=== PATIENT | female | born 1985 | race Caucasian/White ===

== ENCOUNTER 2023-09-25 15:52 | Outpatient (OUT) | payer BC, SELFPAY ==
--- NOTE | 2023-09-25 | US_ITS ---
The [address] [address] Patient Name: NANY SEWELL MRN: [id number] date: 1985 Sex: F Assigned Patient Location: US Current Patient Location: Accession/Order Number: [id number] Exam Date: 09/25/2023 16:04 Report Date: 09/26/2023 07:27 At the request of: LARISSA VIGIL Procedure: US pelvis w/ transvaginal EXAMINATION: US pelvis w/ transvaginal HISTORY: abnormal uterine bleeding COMPARISON: No relevant comparison available. FINDINGS: The uterus is normal in size, contour and myometrial echotexture measuring 8.7 x 3.6 x 4.7 cm. No focal myometrial mass. Area of anechoic echogenicity in the cervix likely representing a nabothian cyst The endometrium measures 4 mm, thin The right ovary is normal measuring 2.3 x 1.1 x 1.7 cm. Normal color and Doppler flow. The left ovary is normal measuring 2.6 x 1.6 x 2.5 cm. Normal color and Doppler flow No free fluid US/US pelvis w/ transvaginal IMPRESSION: Thin endometrium, otherwise normal exam Electronically authenticated by: DORA CAMARGO Date: 09/26/2023 07:27
== END 2023-09-25 15:53 | disposition home or self-care (01) ==
LOC: US 15:55
PROVIDERS: Family Provider Family Medicine; Visit Provider Obstetrics & Gynecology
DX: N93.9 Abnormal uterine and vaginal bleeding, unspecified (principal)
CPT/HCPCS: 76830; 76856

== ENCOUNTER 2023-10-16 15:33 | Outpatient (OUT) | payer BC, SELFPAY ==
--- OUTSIDE RECORDS SUMMARY | 2023-10-16 15:43 | XMS_ITS | CCD ---
Author Organization [facility] Care Team Providers Care Call Center Manager Name Role Phone Ramonita Green MD Primary Care Provider [phone] ABBY MINER Referring Unavailab le GREEN, RAMONITA Primary Care Unavailable ABBY MINER Referring Unavailab le RAMONITA GREEN Primary Care ABBY Lyon Referring Unavailab le NORMA, RAMONITA Primary Care Unavailable ABBY MINER Referring Unavailab sendy GREEN, RAMONITA Primary Care Unavailable Ramonita Green Primary Care Physician Ramonita Green MD Primary Care Provider RAMONITA GREEN Attending Unavailable LARISSA SALGADO Attending ABBY Lyon Attending Stephanie Medications Current Medications Medication Drug Class(es) Dates Sig (Normalized) Sig (Original) Aurovela 24 Fe oral tablet (1 source) Start: 01-16-2021 take 1 tablet by mouth once daily Aurovela 24 Fe oral tablet tab(s), Oral, Daily, Refill(s) 0 Start Date: 01/16/21 Status: Ordered ibuprofen 200 mg oral tablet (2 sources) Nonsteroidal Anti-inflammatory Drug Start: 09-28-2005 ibuprofen 200 MG tablet Ventolin HFA 90 mcg/inh Aerosol (1 source) Start: 01-16-2021 take 2 puff(s) by inhalation every six hours for wheezing Ventolin HFA 90 mcg/inh Aerosol 2 puff(s), Inhalation, q6hr for wheezing, 18 gram, Refill(s) 0, [id number], 172, cm, 01/16/21 9:36:00 EDT, Height/Length Dosing, 114.1, kg, 01/16/21 9:36:00 EDT, Weight Dosing Start Date: 01/16/21 Status: Ordered Problems Active Problems Problem Classification Problem Date Documented Da te Episodic/Chronic Acute and chronic tonsillitis (1 source) Chronic tonsillitis 10-03-2013 Chronic Biliary tract disease (1 source) Biliary calculus 05-29-2016 Episodic Other non-traumatic joint disorders (1 source) Shoulder pain; Translations: [Pain in right shoulder] Episodic Past or Other Problems Problem Classification Problem Date Documented Da te Episodic/Chronic Unclassified (1 source) Exposure to 2019 novel coronavirus; Translations: [Contact with and (suspected) exposure to COVID19] Results Test Name Value Interpretation Reference Range Facility Coding Summary.on 01-20-2022 Coding Summary. [id number] G h0bWw+PGhlYWQ+NZ2XRCX fZ65buAXdiO4JZ0sUGT2U UHPVSIFKFN1WHY6orYP9U KhxT8QdcjDg NdcsoVWiLS38SEt4ECN5v TupWVvmlC5pkNJvX6s0Ic PoIJ65rQ27TBkwDNYrQsG 3LjZpbjsgbWFy H7qsHnBnsNXgMnw+PHRhY mxlIHdpZHRoPScxMDAlJy LtsZunHE3kUg2bLWEbXCC vbGxhcHNlOiBj v8rxLEKuDAxyKH6biCrcO 3UthVM9MKBzj7a2Iq28bJ I+MFGdKRY7uJfkESfbj38 5RmFlo4alVNO6 oZLrMNcsJIW0J68ey2W6X FQbOYVyDJL3dDV0mZ6tvH jjctwrA8UpoMLfYuP3FQV 6oWScgK7jxKoq zlailY3tFnr+Q45OGZ5RT GRXQM5PMmt2W5UqVefudD I+DS27VGLzIO93nTWrcHE rp5fabGl8HfOz BAYoTYY1oYpbGDuqp8LyD NBbX79stJSks9T4NSBuxY wfwNHgYpToeAS4fR0zZTb pzmykv1bvibot Vrckq6ojop26uG94R91fA QjpLGKhTLJ3QZQnMXLdlR qjxk1pkM8iNw3+OSvxt9i ot9nogJa7TdBf HKKlnaUmwApuVHK8p2LsW e08R1ToiMsnf5UiFoa4em 85xCUyi0M7hDO3EClzXQB ceI2uKDebLyW9 TFDkFbHsqA13bVAgDCjjX j3svWqeeZjpLM7vFQAgtz hgOGWujE4mEVWvwHKilNc fGH0qACLxvsla g678ShPlKTR6ARGjdXPvE 9IwqV2kObSqFJBhFNDnU8 NrqREfAZhtL269KCpjGuR 8ZWThonZqC2Zs FJXexMkhLvW4s0E0Mz8Go 0ItlhbyAGQ0MMgeYUA5Wk DjAnAaVcE7O6NoPsn4XRM kaPugAD3rU8Yg LCVlwkemgtqaoLK7ARZpZ PUcuF28mSFmSWfpIm0ff7 P8p432EJOjPWYqoP20Fo9 udDogMTBwdCBU wN8oomavv3enlmboNtFiE NItUUf6WAe9ANLzkWikKl EyJAE8XwV5OVU6cJVamV6 nlFuvujhxxS7f Oyc+Y92xvC1lLRJ8FZN7p yjtAHAoynIvSW25EY30X3 RyPjwvdGFibGU+PGRpdiB viCjyQH7qJtEx u6tvz2GqLHxmC9XdCFOcT DrbLkf4QOYcSUB9kEX3bR 1tMEFgJJhgp4O3wXK6K6L lddBbeb8ax4tr LABzXHtmX61smIAlc2N2N UAtuHF9AQIipOipWkHknC 93Oyc+DPDbvEsfy8GiBtd yh7kow9orsSl4 NyYjQDLwhuWltLenMBU0r 1BsGi42F09aLMejVNQfFN SlVRMmFLRhiBwaus3nsE1 wIi8+PGNvbCB3 oMJ7sL0xBFXzNzS4XMtqY 346TxDmwWEjXilxx6lvu4 bccJu9AkNqDYPdewFkkTm wNNK1b3PmYx67 R34aUJdySIPaYNHySZNqM XTioMmmta9anX3vUj8+PC 9ng3yllt86oX78sGS+PHR gJCV5tVjpTEuo OGIboY8fAZvhVgB2EMQkC oNkrX17nZKkXWmaAy1xuN kkyAcpTF4yGSOngyytr70 1QfKbb1ezLJUn iSDyLItrJKZ9Y13mn4A0E PNqJRToFJP8hBO3qO0gnI lnbjogbGVmdDsgdmVydGl pIXtpVFlnR961 IHRvcDsnPlBhdGllbnQgT gWvVGa7Y8JtRwl2MQCluQ xvHW7mzHNwMTmlQv0lkIr yhIqfQZ3sKVYk zvhmw404XdUxl1irQALjn XGlTZxuXRS7U94cg4Q1OE HsLZPsPIQ8vMU2jY4nhTh nbjogbGVmdDsg rnUtiErfBRlfJRrdP174V HRvcDsnPkJpcnRoIERhdG E7TO92ZJ29wSFun6S3pCQ 8L7GhFHSgahle zfvbuSE7LKEhDDKojL35W c3xeBmoRv5iULDgISU8JT IboROkU7YhuR3eItVsFNM tCMGdF9UiyMLz GRhsG473UTorPnK9WCAxz cNiY4WwYEBjiGjgUhN5b1 N1Xv7UL8M5PD23YE13fVD tg3O0rSA7O5We ULTkopruzezitNY1TOIgU BIbnD01Hx5gcSfpDt9uBO SwWUB5WLLnpSUqY1PozV5 yOiAjMDAwMDAw Z0LigCYbDGyqG702UWdeZ xF5WREkakNpU8OnVEVjoL gfXvL3y6Y1Qt8UAGq2AM5 4PD79cKBwc3V7 tUO7X5LkRDMqznnyihesf HY6GDYqEIAskA70Na2eeP zoPn9cAPIxAIB4AOTycYF qS5SmzT1jGyXx DIMaGCEqH0XrkMWkZPseH 302KSeuPdH5NASiehWvB6 PpUKUzeXtkHtD9x5I2Bv7 LWFQcNT47NEM1 iKG3SC96YF18F2ZkUtquk GFibGU+PHRhYmxlIHdpZH RoPScxMDAlJyBzdHlsZT0 dFw4wZEQmDQQl wRbslPXtBxRos5jkHKYhR ZeaIJ6muGslK2HpjTV1SP Peb1z6Bq66Y74sC6VtgAV +KQGbnJH5lYR3 kE4sXaSeYhO9WTtlP903E nYakOVkHyril9pef2iwmL t4UxJ1MNHbyeFutDacEYJ 8e3RyCa24Q34u IHdpZHRoPSIxNSUiIHZhb Ckajy8lsN5xOk4+PGNvbC G4vYU3xC5yYhPeKnC2UHs zC628SpBdpZGk Ynnpo4bye7oryNa6LgDkD OLhtiPljIavZVP4n9FuJj 48M2WbiGqxx5TdLja6mw5 5lXUco3S3uOO0 O9KgTMIddidieJPfjQpyU T0rSKOppjurCORsrP9xOT BwE7m2YiYnRjT7LCcqM6U mdxJ6GOUurABz VJziJHS1O99wa8I0XXSfM IPqLZS4aKP5vH9mbNuuak ogbGVmdDsgdmVydGljYWw tKFnvT690JLTv hPpjMNLoaP7mYZUljDTsl QopCA1gFROtdpogGggIDn QsIEFMRUEgTjwvdGQ+PHR nLMX7pOceDLec JXIteM5aFHIkO8m1JoSpN eG1BEubI5KiNDYzrxibIz 33qI8eNmWqGfC1UJbsE1X oidN2TWZgvVEz XLtmQOK6X00lc8R2FOXtB ACaRSX6yAV6jQ6cjAayzu ogbGVmdDsgdmVydGljYWw nSVthR037ARHh qJhiGtB6JkEqKuS2ISn7T 6WsQhv1BTPkfLruPB5joF IzAFspVa3sbPpkdLlwSS7 wNTBpbjtwYWRk xM5iEQFaeTBqaZnkSM7zO CTdmbows190EyMdPAB1IL VfdHPhB2CxuY5gIzYlFKE kUBXsV1LeaTIp AYynL307USapMmJ3MWMuh tZxS6FaCZEnyBvrRxO9w1 U7Cd1iOCWNFSSaabplyDZ +XWHaXGO7pYrl VStsBXDijX7zGKIjK7a2R jUrEcY1FPbqR2CqVHBxbb teXn08rQ6dRzOgJxL1LMr aT9LpxqU2NLGh xEJbCFiwDHY8N21zn8O5V ENrEGBkLAN1eVS2vZ8byZ lnbjogbGVmdDsgdmVydGl hRHhsLRzbK288 IHRvcDsnPkZlbWFsZTwvd GQ+DZCnZGT7bTxoSPsbBJ PujU8dTRXwG3c3NeEvIoB 2YYrlA2IcLMDm zbxsQz96wB4gJsPyZhQ8B DliQ8QoctR0NMMzpVApNL faURB6W39zd2R2WNKrZSC qZZL7cFL6vH6l bGlnbjogbGVmdDsgdmVyd AtjFIuyHVzkG649JSUraT ehBdscKaUDzc8rNA8cVog vdGQ+TY05pr38 S6SsGzmjIft0LZIvEQO8t AW5oL4oMZBtZDqub0C3fR T1N4YzwzHbil0eb9aoSFU jSLupH76qlQOi w3I8RFBfoWL9BDFobJyiS mXjsW29Uel+PGNvbGdyb3 TaPtvia6lgt4bbfMj0PsL wJSIgdmFsaWdu MSF5h6WiPp33K53aVSbyQ HRoPSIzMCUiIHZhbGlnbj 9cpA9vIn9+FGVzrRF9lWD 4aY3wOiCmSaE7 DUmeX604WsHyvYIlFlalu 4ckl3nzqWw2GdPbKXXxja BorXjiCOS3h7UtQs92L3C jvLurg9VzEoe3 pi61qUJga4W4aNP4S0ElR MMgtkvzbMNajMyoVP5zQY LrcaarZERcnC3mKXSzO7y 3CgZoOwK8SGnr P8MfbtU9HJMlwFLkTCNyk HJInY5iviada9hbxzbbFl FoQYSsAAa4SUn3UIAguLa aIgYtITF8MrW7 CUG2dCJpwK8peWfdepdmz G9wOyc+EUz0c7jclJHeLM 0giWI1GA57GT07mSCwj4D 3jTH2G1VxIUQv ikzwdumesDD7UIKdVHCqt V39Jb0gsUhyOv5kNYCmFK T8MJFawEDgS6VoqF5dNcV jDHLlMZCwB2Zh iCPgKRqpL085JWlnNeS5C UCoerOgM8DuZQKbkFnbZc U7k0T8Xp4HWM26XP84WK9 0gWAec4S7aBA1 Z8HrZWKxolywglftbGU1F INeXHHraK81Ad2cqFppVv 8oWCGeCPX1SYHivVYrK2K rnC9nJlBcBUXa SNVfH9FomZZtHEthW709N GqsLgO0UYTitiLnH5GzZR ZydGltViS1l2G9Ub3AZc3 2MJ70GR93bEWh j7T3jMZ3M4OyYOJftdrix lunuMG6JYMtVPOyiT27Ay 0fnDszWi3fNAJfUIT8UGF niIUzI4TiaM8c JqXaQWUbCEJcR4NanBUqK PymN946PXhgNjW6DSPnsg XxQ0IwKEYqxNyoQgD5g7C 4Ho0VAProcaj3 H7LrFjiziPY+DA45LOWkV H44fKNmmKLyp3xlsVz1Qh DtGMPeXNS1sIwdJMpxv8P fPAKxB26toNDx c2U6 (more content not included)... Normal [facility] Lab Miscellaneous-LCon 11-04 Lab Miscellaneous COMMENT Invalid Interpretation Code [facility] Comment on above: Result Comment: Test Ordered: [id number] IGP, Apt HPV,rfx 16/18,45 IGP, Apt HPV,rfx 16/18,45 Note WB TESTS RESULT FLAG UNITS REF RANGE LAB Clinician Provided Cytology Information No. of containers..01 ThinPrep Vial DIAGNOSIS: 01 NEGATIVE FOR INTRAEPITHELIAL LESION OR MALIGNANCY. FUNGAL ORGANISMS MORPHOLOGICALLY CONSISTENT WITH SALIMA SPECIES ARE PRESENT. Specimen adequacy: 01 Satisfactory for evaluation. Endocervical and/or squamous metaplastic cells (endocervical component) are present. Performed by: Zelda [facility] (AS[facility]) . 01 Note: Note 01 The Pap smear is a screening test designed to aid in the detection of premalignant and malignant conditions of the uterine cervix. It is not a diagnostic procedure and should not be used as the sole means of detecting cervical cancer. Both false-positive and false-negative reports do occur. Test Methodology: Note 01 This liquid based ThinPrep(R) pap test was screened with the use of an image guided system. FLAG LEGEND: L-Low Normal,H-High Normal,LL-Alert Low,HH-Alert High <-Panic Low,>-Panic High,A-Abnormal,AA-Critical Abnormal Performed at: [address] [facility] [id number] Viky Gregg MD, HPV Aptima Negative =G Reference Range: Negative This nucleic acid amplification test detects fourteen high-risk HPV types (16,18,31,33,35,39,45,51,52,56,58,59,66,68) without differentiation. Performed at: [facility] [address] [id number] MD Cristino Salmon Performed By: #### 1 [id number] #### [facility] [address] [place] [address] Lab Miscellaneous-LCon 10-28 Test Code [id number] Invalid Interpretation Code [facility] Comment on above: Performed By: #### 1 [id number] #### [facility] [address] [place] [address] Test Name pap [id number] Invalid Interpretation Code [facility] Comment on above: Performed By: #### 1 [id number] #### [facility] [address] [place] [address] Physician Orderon 10-28-2021 Physician Order [id number]:[address] [facility] Coding Summary.on 08-04-2021 Coding Summary. [id number] G h0bWw+PGhlYWQ+MA0PDSX zB22cxJUhxR2AT5nWGM0A SZVJVBDCJB2JUE8bqCZ3B JgnZ9ReilLc EdgnjSTjGQ20DXs6CPL0s XewHRzsmT7iaGLcB8n6Qw RrMV63oY44RMmsIZXkFqN 3LjZpbjsgbWFy K6nyAqDmeKKhFvn+PHRhY mxlIHdpZHRoPScxMDAlJy OtvZplLE1cWa7fNURnAOR vbGxhcHNlOiBj t8ipGSImGSjiFT5ymRghF 6SqhFE6XRHnr3f5Wp97yC I+NYHcSHH7pBfjZFpng87 1IhPcb6raIXB3 bKWeIGntUML8M47uj2J8H FUyNNJxKCR2sIG0mJ1qcJ ydfkwmK1DewLAfWqO6TFP 5kTMptD4mtIgz yruffK0aLjm+I78VIU0JV VCJMG6BDxp9Q9SsDrwrvF I+XR41YQAoSO27aLRuvQK yv6yllCc6KgPu HXEnJSA4eYrpEWftx9LnW ABzC46ojMZyd0A2IBOwuE lamOIbCfGviDU3nG9jCJp gckxve8dahsbg Rwjfu2qtzv57vH63R27uL VrwGHUuKZT5QQOqNLUfpA exjx1wjQ4lCa2+FQegb3i df0vqhBv2SbJt XJYcadSzrGhgNYW2t2UnC c87A5FhrCfmp9HwBma3la 95gGRmg9X1cAW4DSvnMDN heI7qFPjeXkC3 IGZlWmNobO06pPAtKNueB m0vdWmllDogRM5lJWCzcf jiHPKsrL6bWGXwqAAarJx xIU3wTLSslcxu e350VkCyAYK7XWQwvJVcA 4NobY0iErVxEGQmFZAfF6 SidQYaOFesD757NLojXyR 2ATLrzmUfL8Hd YTFxsZthSzQ0a1V8Am2Zi 0GkdhxqLML6KTeqVNKcDo VoIlNiPlU2R7IzHfq9OLX baNbtNJ0zZ2Zt PWQpxnlznslftVS5BDArS NNdzR18rYNxXRwlPk9zu4 B6y878BZOsHRWxwZ29Fx2 udDogMTBwdCBU mX6acxhgu2jpboqrLlOaL MSaFHt0SUi5OQTbcWeoPc JvZNC8RnP4IWO8nSXlgI3 aiBtisuvemS7m Oyc+W84vkD5iGWJ6WHS7h jcaVQAerfTeHO28AQ70K8 RyPjwvdGFibGU+PGRpdiB btXstCP2aCaZf x2ghf4GlMUncP4YmKUWxL BglMze2IUEeHBA8bFZ0fS 4nSREnMApns0A3vCX5X1D ndiBngo5wy0bl FKVlNBuzQ10twNBfw6A5R CTflHW1IZFipCkqZyTmoE 93Oyc+CTFabXcwz8NjOuf tf1rcw5uxxAj1 VdAxKALrdeYnmHslVSE5f 7YuLz77K13hEFkzXCBwGE QtTQUpAGFfaFngxh5guN0 wIi8+PGNvbCB3 eCP7vV9yRUBsYpG6OCcmZ 369LrPlbZWwXaaaa2pjw6 kkdFj6TaEeSSKivrRlyDn bSTV3h7SoDr73 X14nOLceRCEbLETuPOTyZ GYgyTabtx6ttF0nPv8+PC 8dy4hnwd76dH53bDD+PHR fOSB2rYrzHDjo TTDpzH9qIIpmUsS2EYDtF uFsxZ46uLOaYBhkZj0cdS xgpBfcSI2yIATdxmdua24 4QwJme6epLTYf oLXnEJpbYPX6L68xo4B2M DRpSZXvLUJ5yBG0dH5mnM lnbjogbGVmdDsgdmVydGl vRQvkLFnqH288 IHRvcDsnPlBhdGllbnQgT mTvUPn6K7PoUgy6TEXwrF fwXL2ubRLlFCicKf0pyOl tkHecAO4qLEZy hluek174FgJye0pgWOOds NUvMWuqBBC9M44bh1T6TD LgGSEnWKM9jDG7gQ1clZd nbjogbGVmdDsg hdAnqMktANnzLGazM937N HRvcDsnPkJpcnRoIERhdG O4MW94BN74aBRlt7D6eLA 8U5SpQIVzcfxk xxhhhUJ4JCDkYXNytX29Z g4dnPjfJo9aTNRiHIX9FZ OjhHQdE0MqcL9nFxLwKMK yGWMxX4JqpSUp EWrmW215AHguHiJ9VFQkm hPxE6CvSAPpaWwaKpA8k4 T5Mo3TL0Z9SI65LZ62uIC wf3S6tSZ7H3Di SXJgxjgurjpacKE2HSTuB AUsxA08Wx8qrCioOf8oUM LtUWS8HRSjeDEkX3PdxP7 yOiAjMDAwMDAw J9EhsYPjIPhaM322FCcvU zF2BSFlntXiU5DeVALxwD yhDsR2u2W6Qw9FZUm3JP7 4CS53sONio0A7 tKF6K2AlQMZvjrgmoymfl HU7LILkQZBryB38Bi9axA rpDe3jPYLqWZS4TBSsnBG rD1UtjO1fFxHd PUUpUFRxG4NutRVtGJruG 938VRdiMcH9DXPkwwXaF5 QnHENmdLabIuN2c0O8Bo9 XPBKmNJ02VQL5 dRE1XL01HN16H7XcTdarv GFibGU+PHRhYmxlIHdpZH RoPScxMDAlJyBzdHlsZT0 fXw5cBGOlRJVv cLatmLRlPkTkr4ubCRVdC DxpJO7csChgD0WqyIB9XL Nho3p2Ma32E85gL3XshXK +ZTEomTS5jFC7 uK8rFtFvUlJ2SRhtY323M tRkhZKqElayz6cud5sosB d1MaA2YNXfefUpoYigPTC 3y2LtNn74U57s IHdpZHRoPSIxNSUiIHZhb Mfzrs7ciI4pFq3+PGNvbC Y4eGI2rT9rEcInCbR1IAi dG152RnFazQOi Jydkv8rkl7sutDd1UlZmX YJnkaIoxFkqEKS6q7HmVn 65I7DlfNwln9FnAti2fj3 3cNZsc9R3gSA2 A6WhPLKvuaecqOSpvIqrN D8yPHYlpnkzSVGagB3fGK AsJ3s5SyQdHbE9ZUehW1R bxvH7EZEnsBOt ZWpwEQD1N97zg1V5RQBeJ BHkRFX0jHT2wU3voIhxwf ogbGVmdDsgdmVydGljYWw rLRzrI469DTUo eDjmDDDmzP6pLWOyzQSxj YzxOK3aKGCpqmimMkwEBq QsIEFMRUEgTjwvdGQ+PHR gQEA4bCaeMYxi EYVyeQ7aHCLkK0m8FoPfD jL9KVlxI6NcLHYmvxivKa 64bW1rIdIxHbT8ZDtxR3R qhaF0NLJjdTMc HXijSHK1W48st0H1NBPwG SRaFMK2dDW1vM6tiUubfd ogbGVmdDsgdmVydGljYWw pMVibA348CIOn mVwqAgK0XaPeBuY8VDa5T 9ViIar1HZXspNrjSZ8lyX LgIJqnBu1tdFosmBeaOS3 wNTBpbjtwYWRk vY4kOFVxzLMxlEznYQ7kG DRmweeww395YjYqPTK0HD TpqYVaR2FukP2zWbUhXZT lMDNiD7BlyJVx GAimU298MBddSwD4LLFef pIrD5OaNSWlgXpyHaV1d8 K5Ph1iPbMPUFDvbeywiEU +HPCkNXV7fFli ROfpKOQygQ1yCZCpX1v5R tVaMdQ9OXkxS8HnVJBvop cdWp14mJ9yXeRxMtX5ZSl hK1HnwvS4REXh wINwDPoxYOL8Y54ge3L5L KGcIUHuPJS1iTL6qC2bfU lnbjogbGVmdDsgdmVydGl gBCcwTYexU284 IHRvcDsnPkZlbWFsZTwvd GQ+TYNlHLM2vOjmJVxaFR EyoK2kSMEwH0t9ErTlFbR 5FOhvE3ViEFOq umivTz49zJ6cNbGcLgL7V QdzA1UbjxQ6QZAuyPEqRK ayCUA7B53hm2L8EDVbPIB vSDN9fNI3gU2f bGlnbjogbGVmdDsgdmVyd OhsJHhvBIdvA582BFDrbT bePnUuT9NfgjavUofpiOP +GT67qh08F1Ec ThsoPih0QHAoERZ6oLW9l B7mQOStUXzqs2E3wYL0B5 KwjzTdvf9ff2swTGSrUEe nX89nxOLeq3M1 QOMfvWT3BSLbaCpeJgVey G93Oyc+TVFluLgvp2AvMm dbw9xxd9bswZs6CcYySTJ gdmFsaWduPSJ0 y1EoCk35J82zLRqlHVUsM SFsLWZyOAJruXkstc0lhS 9wIi8+NRIecDV9mTY0iV0 fRaXlFgQ5UNfl A562DiZyuRPrWyuaj8cto 4ffcLl1DlDlHWHcsgKkgF iiRCX1i7PeIn84R3DpwRy of9NaFxu9mb12 bJQgk8M5vJO1F1KjJSGig gxafOQcaZxeXM7gQIJlom esVBXtyR2bSSXwD9x5OuO sJdI2PQpdE6Jk rlH4JTJxuMUvTEKtvPHZg S3rwbcrq8iurzryRlSdST CtXXi2WRw0BXOlqJnhRhJ jDPS0ZnE8IHJ7 dPOsvB8utThpmvjdsV1oI yc+DFy4l7luiLBuVI5fdK G7SO91XI42rVLey1B4xZM 9H8DjKMCxqsyc bhjtrAT2RPGvRYOihI30E k8vuMjaUw7uBQIfGAE9XL XcfSSfF4FhtC1nSuYaNDE qSTUuN5BgwYWy HRtoI209CEwlVvO1FTGgw tJsM5NdKYHjyQdkDyF9n5 G5Am4CST52JS10CA87gVR hw6B4sDS7O8Rr XQJnkgiubewegRY3JRIyO WWieR49Es6cqOfvYg1mCP ZeGCN6JTTccJYoG6RgjZ0 yOiAjMDAwMDAw P0PxwAEcUToqS715ACddD gR9WNBavoOqH1VqKJTqvH hrHbT6y3R4Fe7EDq64XT7 3RO70yQFnq0A0 hPM0H3EdYSCvcipgefnqm RL2ZZLrERHkgO65Lt3ruS ajJz9eJRJtODW2OAQrkIA bE4DebI2aZlUi BNIkHQGxG4SvrEBeTWpuK 044MYsrXiW4JQIhuaZaR5 QxPUEtoCqaRxO1e3X8Sz3 WUMsjewn6W4Ba PjwvdHI+YQ47LCJgYJ12l WEijIJuo7yjwZi8EfHuEL JoWPB6lGijHXhys5RuDEE wX08yvLRbn6I4 IGNv (more content not included)... Normal [facility] Priority Order-Sony 2021 Priority Order-STAT Comment Invalid Interpretation Code [facility] Comment on above: Result Comment: Rece ived Performed at: [facility] [address] [place], [place] [id number] Formerly [facility] Tigre Bloom Performed By: #### 2 [id number], SARS-CoV-2, JESSE #### [facility] [address] [place] [address] SARS-CoV-2, NAAon 08-02-2021 SARS-CoV-2 (COVID-19) RNA JESSE+probe Ql (Resp) Not detected Invalid Interpretation Code Not Detected [facility] Comment on above: Result Comment: This nucleic acid amplification test was developed and its performance characteristics determined by [employer]. Nucleic acid amplification tests include RT-PCR and TMA. This test has not been FDA cleared or approved. This test has been authorized by FDA under an Emergency Use Authorization (EUA). This test is only authorized for the duration of time the declaration that circumstances exist justifying the authorization of the emergency use of in vitro diagnostic tests for detection of SARS-CoV-2 virus and/or diagnosis of COVID-19 infection under section 564(b)(1) of the Act, 21 U.S.C. 360bbb-3(b) (1), unless the authorization is terminated or revoked sooner. When diagnostic testing is negative, the possibility of a false negative result should be considered in the context of a patient's recent exposures and the presence of clinical signs and symptoms consistent with COVID-19. An individual without symptoms of COVID-19 and who is not shedding SARS-CoV-2 virus would expect to have a negative (not detected) result in this assay. Performed at: [facility] [address], [place] [id number] PhD Buck Roblero Performed By: #### 2 [id number], SARS-CoV-2, JESSE #### [facility] [address] [place] [address] Consent for Treatmenton 07-23 Consent for Treatment [id number] #1.00CD:[address] [facility] Reference Laboratory Testing Ordered By: [employer] on 08-01-2021 SARS-CoV-2 (COVID-19) RNA JESSE+probe Ql (Resp) Not detected Invalid Interpretation Code Not Detected [facility] [employer] Comment on above: Result Comment: This nucleic acid amplification test was developed and its performance characteristics determined by [employer]. Nucleic acid amplification tests include RT-PCR and TMA. This test has not been FDA cleared or approved. This test has been authorized by FDA under an Emergency Use Authorization (EUA). This test is only authorized for the duration of time the declaration that circumstances exist justifying the authorization of the emergency use of in vitro diagnostic tests for detection of SARS-CoV-2 virus and/or diagnosis of COVID-19 infection under section 564(b)(1) of the Act, 21 U.S.C. 360bbb-3(b) (1), unless the authorization is terminated or revoked sooner. When diagnostic testing is negative, the possibility of a false negative result should be considered in the context of a patient's recent exposures and the presence of clinical signs and symptoms consistent with COVID-19. An individual without symptoms of COVID-19 and who is not shedding SARS-CoV-2 virus would expect to have a negative (not detected) result in this assay. Performed at: [facility] [address], [place] [id number] PhD Buck Roblero XR KNEE LEFT (MIN 4 VIEWS)on 05-12-2021 XR KNEE LEFT (MIN 4 VIEWS) EXAM: XR KNEE LEFT (MIN 4 VIEWS) HISTORY: M25.562 COMPARISON: None. TECHNIQUE: 4 views of the left knee and 3 views of the right knee were obtained. FINDINGS: Left knee: There is mild, tricompartmental, marginal spurring along with spurring of the tibial spines. Right knee: Spurring of the tibial spines and mild marginal tibiofemoral compartment spurring. IMPRESSION: Mild tricompartmental osteoarthritis at the left knee. Mild osteoarthritis at the right knee. Interpreted by: Jodi Rhodes MD Signed by: Jodi Rhodes MD 05/12/21 Final result Normal [facility] COVID-19 ([facility])on 04-16-2021 SARS-CoV-2 (COVID-19) RNA JESSE+probe Ql (Unsp spec) Not detected Normal Not Detected [facility] Comment on above: Result Comment: This test result should be correlated with clinical presentations and medical history by a healthcare provider to determine its clinical significance. This assay was performed by a reverse transcriptase real-time polymerase chain reaction (rt PCR) method on the [employer] system. This test has been authorized only for the detection of nucleic acid from SARS-CoV-2, not for any other viruses or pathogens. This test has not been FDA cleared or approved. This test has been authorized by FDA under an Emergency Use Authorization (EUA). This test is only authorized for the duration of time the declaration on that circumstances exist justifying the authorization emergency use of in vitro diagnostic tests for detection and/or diagnosis of COVID-19 infection under section 564 (b) (1) of the Act, 21 U.S.C. 360 bbb-3 (b) (1), unless authorization is terminated or revoked sooner. Performed By: #### 2 [id number] #### [facility] [address] [place] [address] SARS-CoV-2 (COVID-19) RNA JESSE+probe Ql (Unsp spec) Pass Normal Pass [facility] Comment on above: Performed By: #### 2 [id number] #### [facility] [address] [place] [address] Specimen source Nom (Unsp spec) Nasal Normal [facility] Comment on above: Performed By: #### 2 [id number] #### [facility] [address] [place] [address] Family Medicine Phone Visit - Telehealthon 04-16-2021 Family Medicine Phone Visit - Telehealth Chief Complaint cc cough congestion HPI Staff Symptoms started-4 days Headache- no Body aches-no Earache- no Runny/stuffy nose- both Problem with Smell- no Problem with Taste-no Sore throat- yes Cough- cough Scratchy tickly throat- no Chest symptoms- yes hurts when coughs YEAGER- no but yes if moves around Orthopnea- no Lung Hx asthma, bronchitis, chest colds- bronchitis 3 months ago Fever/chills- no GI symptoms-no COVID exposure-no History of Present Illness I have reviewed and verified the staff HPI to be accurate for this encounter. Adding on--35-year-old female presents to convenient care via phone visit for sore throat and cough. Still able to eat and drink. Able to swallow though it hurts. No chest pain. Reports some chest tightness with coughing. Reports mild shortness of breath with exertion. No dyspnea at rest. Reports having bronchitis about 3 months ago and tells me she feels the same now as she did then. Requesting steroids and Bromfed. Denies red or white patches in the back of throat. Tonsils removed when 24 years old. Did have COVID test on for work and has not resulted yet. Denies Strep throat exposure. Review of Systems Cough: yes, productive SOB: yes, on exertion Wheezing: no Ear pain: no Ear drainage: no Loss of taste or smell: no Nausea: no Vomiting: no Diarrhea: no Current or former smoker: no Underlying health conditions: no Known Covid exposure: no Physical Exam Vitals & Measurements HT: 174 cm HT: 174.0 cm WT: 113 kg WT: 113.0 kg BMI: 37.32 General: In no acute distress during phone visit Lungs: No conversational dyspnea or audible wheezing noted Mental status: Grossly normal over phone Assessment/Plan 1. Acute URI (J06.9: Acute upper respiratory infection, unspecified) Discussed differential of common cold vs covid. We will treat with Bromfed and Medrol Dosepak. Continue to wait for Covid test results. Advised to self quarantine x 10 days after onset of symptoms OR until negative test AND until fever free x 24 hours without tylenol/ibuprofen with improving URI symptoms. Social distancing, good handwashing encouraged. May use OTC cold medications for symptomatic tx. ER if any severe worsening symptoms, shortness of breath. Patient verbalized understanding of tx plan. -- Limited car PE performed. In no acute distress. Mild left cervical adenopathy. No overt posterior pharyngeal erythema or exudate. Lungs clear. Heart rate regular. -- This visit was conducted via phone communications from my office due to the restrictions of the COVID-19 pandemic. No physical exam was conducted due to audio only communication with the patient located at [address] [place] [phone], with no one else. If it is determined that the patient should be evaluated in person, the patient will be directed to the appropriate clinic or venue. The patient or their guardian verbally consented to this visit. Phone time was 10 minutes discussing health issues with counseling and coordination of care. Ordered: brompheniramine/dextr omethorphan/PSE, 10 mL, Oral, QID for cough and congestion for 7 day(s), 120 mL, Refill(s) 0, [facility] #[id number], 174, cm, 04/16/21 10:01:00 EDT, Height/Length Dosing, 113, kg, 04/16/21 10:01:00 EDT, Weight Dosing methylPREDNISolone, = 1 packet(s), Oral, As Directed, as directed on package labeling, X 6 day(s), # 21 tab(s), Refills(s) 0, Pharmacy: [facility] #[id number], 174, cm, 04/16/21 10:01:00 EDT, Height/Length Dosing, 113, kg, 04/16/21 10:01:00 EDT, Weight Dosing 2. Laryngitis (J04.0: Acute laryngitis) See above treatment plan Ordered: brompheniramine/dextr omethorphan/PSE, 10 mL, Oral, QID for cough and congestion for 7 day(s), 120 mL, Refill(s) 0, [facility] #[id number], 174, cm, 04/16/21 10:01:00 EDT, Height/Length Dosing, 113, kg, 04/16/21 10:01:00 EDT, Weight Dosing methylPREDNISolone, = 1 packet(s), Oral, As Directed, as directed on package labeling, X 6 day(s), # 21 tab(s), Refills(s) 0, Pharmacy: [facility] #[id number], 174, cm, 04/16/21 10:01:00 EDT, Height/Length Dosing, 113, kg, 04/16/21 10:01:00 EDT, Weight Dosing 3. BMI 37.0-37.9, adult (Z68.37: Body mass index [BMI] 37.0-37.9, adult) The standard range for ages 18 and older is >=18.5 and < 25 kg/m2. Your BMI today was above this range, this falls in the overweight to obese category and there are medical benefits to weight loss. We can offer counselling, referral, and/or medical support in addressing this problem. Your BMI and weight management will be followed at subsequent visits. Ordered: brompheniramine/dextr omethorphan/PSE, 10 mL, Oral, QID for cough and congestion for 7 day(s), 120 mL, Refill(s) 0, [facility] #[id number], 174, cm, 04/16/21 10:01:00 EDT, Height/Length Dosing, 113, kg, 04/16/21 10:01:00 EDT, Weight Dosing methylPREDNISolone, = 1 packet(s), Oral, As Directed, as directed on package labeling, X 6 day(s), # 21 tab(s), Refills(s) 0, Pharmacy: (more content not included)... Normal [facility] Comment on above: Result Comment: Elec tronically Signed By: Beronica Rodriguez CNP\.jenaro\Date and Time Signed: 04/16/21 11:11 EDT Patient Educationon 04-16-20 Patient Education Gastroenterology Obesity, Adult Obesity is the condition of having too much total body fat. Being overweight or obese means that your weight is greater than what is considered healthy for your body size. Obesity is determined by a measurement called BMI. BMI is an estimate of body fat and is calculated from height and weight. For adults, a BMI of 30 or higher is considered obese. Obesity can lead to other health concerns and major illnesses, including: ? Stroke. ? Coronary artery disease (CAD). ? Type 2 diabetes. ? Some types of cancer, including cancers of the colon, breast, uterus, and gallbladder. ? Osteoarthritis. ? High blood pressure (hypertension). ? High cholesterol. ? Sleep apnea. ? Gallbladder stones. ? Infertility problems. What are the causes? Common causes of this condition include: ? Eating daily meals that are high in calories, sugar, and fat. ? Being born with genes that may make you more likely to become obese. ? Having a medical condition that causes obesity, including: ? Hypothyroidism. ? Polycystic ovarian syndrome (PCOS). ? Binge-eating disorder. ? Heriberto syndrome. ? Taking certain medicines, such as steroids, antidepressants, and seizure medicines. ? Not being physically active (sedentary lifestyle). ? Not getting enough sleep. ? Drinking high amounts of sugar-sweetened beverages, such as soft drinks. What increases the risk? The following factors may make you more likely to develop this condition: ? Having a family history of obesity. ? Being a woman of descent. ? Being a man of descent. ? Living in an area with limited access to: ? [place], recreation centers, or sidewalks. ? Healthy food choices, such as grocery stores and [employer]. What are the signs or symptoms? The main sign of this condition is having too much body fat. How is this diagnosed? This condition is diagnosed based on: ? Your BMI. If you are an adult with a BMI of 30 or higher, you are considered obese. ? Your waist circumference. This measures the distance around your waistline. ? Your skinfold thickness. Your health care provider may gently pinch a fold of your skin and measure it. You may have other tests to check for underlying conditions. How is this treated? Treatment for this condition often includes changing your lifestyle. Treatment may include some or all of the following: ? Dietary changes. This may include developing a healthy meal plan. ? Regular physical activity. This may include activity that causes your heart to beat faster (aerobic exercise) and strength training. Work with your health care provider to design an exercise program that works for you. ? Medicine to help you lose weight if you are unable to lose 1 pound a week after 6 weeks of healthy eating and more physical activity. ? Treating conditions that cause the obesity (underlying conditions). ? Surgery. Surgical options may include gastric banding and gastric bypass. Surgery may be done if: ? Other treatments have not helped to improve your condition. ? You have a BMI of 40 or higher. ? You have life-threatening health problems related to obesity. Follow these instructions at home: Eating and drinking ? Follow recommendations from your health care provider about what you eat and drink. Your health care provider may advise you to: ? Limit fast food, sweets, and processed snack foods. ? Choose low-fat options, such as low-fat milk instead of whole milk. ? Eat 5 or more servings of fruits or vegetables every day. ? Eat at home more often. This gives you more control over what you eat. ? Choose healthy foods when you eat out. ? Learn to read food labels. This will help you understand how much food is considered 1 serving. ? Learn what a healthy serving size is. ? Keep low-fat snacks available. ? Limit sugary drinks, such as soda, fruit juice, sweetened iced tea, and flavored milk. ? Drink enough water to keep your urine pale yellow. ? Do not follow a fad diet. Fad diets can be unhealthy and even dangerous. Physical activity ? Exercise regularly, as told by your health care provider. ? Most adults should get up to 150 minutes of moderate-intensity exercise every week. ? Ask your health care provider what types of exercise are safe for you and how often you should exercise. ? Warm up and stretch before being active. ? Cool down and stretch after being active. ? Rest between periods of activity. Lifestyle ? Work with your health care provider and a dietitian to set a weight-loss goal that is healthy and reasonable for you. ? Limit your screen time. ? Find ways to reward yourself that do not involve food. ? Do not drink alcohol if: ? Your health care provider tells you not to drink. ? You are , may be , or are planning to become . ? If you drink alcohol: ? Limit how much you use to: ? 0?1 drink (more content not included)... 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 [address] [place] [address] First Test Unknown Normal [facility] Comment on above: Performed By: #### 2 [id number] #### [facility] [address] [place] [address] Hospitalized? NO Normal [facility] Comment on above: Performed By: #### 2 [id number] #### [facility] [address] [place] [address] ICU NO Normal [facility] Comment on above: Performed By: #### 2 [id number] #### [facility] [address] [place] [address] ? Unknown Normal [facility] Comment on above: Performed By: #### 2 [id number] #### [facility] [address] [place] [address] Resides in a Congregate Care Setting NO Normal [facility] Comment on above: Performed By: #### 2 [id number] #### [facility] [address] [place] [address] Symptomatic as defined by CDC Unknown Normal [facility] Comment on above: Performed By: #### 2 [id number] #### [facility] [address] [place] [address] XR SHOULDER RIGHT (MIN 2 VIE WS)on 12-29-2020 XR SHOULDER RIGHT (MIN 2 VIEWS) EXAM: XR SHOULDER RIGHT (MIN 2 VIEWS) HISTORY: M25.511 Right shoulder pain. COMPARISON: None. TECHNIQUE: AP, external rotation, and scapular Y views of the right shoulder FINDINGS: No fracture, dislocation, or advanced degenerative changes seen. No bursal or soft tissue calcifications are apparent. Two punctate densities overlying the soft tissues appear to be artifactual. Right sided ribs included appear satisfactory. IMPRESSION: No acute right shoulder abnormality or significant degenerative change. Interpreted by: Benitez Grayson DO Signed by: Benitez Grayson DO 12/29/20 Final result Normal [facility] XR SHOULDER RIGHT (MIN 2 VIE WS)Ordered By: Abby Miner on 12-29-2020 No acute right shoulder abnormality or significant degenerative change. [employer] Phone: EXAM: XR SHOULDER RIGHT (MIN 2 VIEWS) HISTORY: M25.511 Right shoulder pain. COMPARISON: None. TECHNIQUE: AP, external rotation, and scapular Y views of the right shoulder FINDINGS: No fracture, dislocation, or advanced degenerative changes seen. No bursal or soft tissue calcifications are apparent. Two punctate densities overlying the soft tissues appear to be artifactual. Right sided ribs included appear satisfactory. [employer] Phone: [place], [facility] Incoming Radiant Results From [employer] - 12/29/2020 11:47 AM EDT EXAM: XR SHOULDER RIGHT (MIN 2 VIEWS) HISTORY: M25.511 Right shoulder pain. COMPARISON: None. TECHNIQUE: AP, external rotation, and scapular Y views of the right shoulder FINDINGS: No fracture, dislocation, or advanced degenerative changes seen. No bursal or soft tissue calcifications are apparent. Two punctate densities overlying the soft tissues appear to be artifactual. Right sided ribs included appear satisfactory. IMPRESSION: No acute right shoulder abnormality or significant degenerative change. [employer] Phone: [employer] Phone: Encounters Encounter Date Encounter Type Care Provider Facility Start: 10-02-2023 End: 10-02-2023 ambulatory ABBY MINER Not Available Start: 09-19-2023 End: 09-19-2023 ambulatory LARISSA SALGADO Not Available Start: 09-04-2023 End: 09-04-2023 ambulatory RAMONITA GREEN Not Available Start: 09-04-2023 Bamboo flowsheet Ramonita green MD Work Phone: [facility] Start: 09-04-2023 Bamboo flowsheet Ramonita green MD Work Phone: [facility] Start: 08-28-2023 Chart abstracting Ramonita jin MD Work Phone: [facility] Start: 08-01-2021 End: 10-30-2021 Patient encounter procedure Ramonita Green [facility] Start: 05-11-2021 End: 05-14-2021 ambulatory ABBY EMMANUEL MINER [facility] Start: 05-11-2021 End: 05-14-2021 ambulatory ABBY MINER [facility] Start: 05-11-2021 End: 05-13-2021 Subsequent hospital visit by physician Ramonita Green MD Work Phone: [facility] Start: 12-29-2020 End: 01-01-2021 ambulatory ABBY MINER [facility] Start: 12-29-2020 End: 01-01-2021 ambulatory ABBY MINER [facility] Start: 12-29-2020 End: 12-31-2020 Subsequent hospital visit by physician Gorge Whitfield [facility] 1 [facility] Comment on above: Right shoulder pain, unspecified chronicity Start: 12-29-2020 End: 12-31-2020 Subsequent hospital visit by physician Ramonita Green MD Work Phone: [facility] Procedures Date Procedure Procedure Detail Performing Clinician Start: 12-29-2020 Radex shoulder compl ete minimum 2 views Abby Miner DO Work Phone: Start: 03-08-2018 Excision of mass of neck Ramonita Green Comment on above: right side of neck Start: 06-05-2016 Laparoscopic cholecystectomy Ramonita Green Start: 03-23-2016 PRK laser eye surgery Naomi Green Start: 07-23-2009 Tonsillectomy Ramonita wright Start: 07-23-2006 Cervical lymph node structure (body structure) Ramonita Green Plan of Treatment Date Care Activity Detail Author Start: 01-25-2027 DTaP/Tdap/Td vaccine (2 - Td or Tdap) DTaP/Tdap/Td vaccine (2 - Td or Tdap) [employer] Phone: Start: 01-25-2027 DTaP/Tdap/Td vaccine (8 - Td or Tdap) DTaP/Tdap/Td vaccine (8 - Td or Tdap) [employer] Phone: Start: 09-19-2023 End: 09-19-2023 Patient encounter procedure 09/19/2023 1:10 PM EST Office Visit [facility] [address] [place] [id number] Larissa Salgado, DO [address] [place] [address] [facility] Start: 09-04-2023 End: 09-04-2023 Patient encounter procedure [facility] Comment on above: Arrived Start: 03-23-2023 Influenza vaccination Influenz a Vaccine (#1) [facility] Start: 03-23-2021 Influenza vaccination [facility] vacc ine ([facility]ed[facility] Start: 11-12-2017 Screening for malign ant neoplasm of cervix [facility] Start: 11-12-2008 Screening for malign ant neoplasm of cervix [facility] Start: 03-26-2006 Hepatitis B vaccine (3 of 3 - 3-dose primary series) Hepatitis B vaccine (3 of 3 - 3-dose primary series) [facility] Phone: Start: 11-12-2002 HIV screening HIV screen [facility] Work Phone: Start: 1999 COVID-19 Vaccine (1) COVID-19 Vaccin e (1) [facility] Phone: Start: 11-12-1988 Varicella vaccine (1 of 2 - 2-dose childhood series) Varicella vaccine (1 of 2 - 2-dose childhood series) [employer] Phone: Start: 1987 Hepatitis C screening Hepatitis C sc reen [facility] Phone: Immunizations Immunization Date Immunization Notes Care Provider Fa cilisadaf 05-09-2021 influenza virus vaccine, unspecified formulation; Translations: [Fluzone PF Quadrivalent ] Ramonita Green [facility] Comment on above: Reason for Medicatio n: Prophylaxis 08-26-2020 SARS-CoV-2 (COVID-19 ) mRNA-1273 vaccine Ramonita Green [facility] 07-29-2020 SARS-CoV-2 (COVID-19 ) mRNA-1273 vaccine Ramonita Green [facility] 01-25-2017 tetanus toxoid, redu oswaldo diphtheria toxoid, and acellular pertussis vaccine, adsorbed; Translations: [Adacel (Tdap)] Ramonita Green [facility] Payers Date Payer Category Payer Unknown BCBS BCBS [id number] 2021-Present [phone] [address] [place] [address] [id number] 2021 Unknown [id number] 2020 Unknown [id number] 1987 Unknown [id number] 1987 Unknown [id number] 1987 Unknown [id number] 1987 Unknown [id number] 1987 Unknown [id number] 1987 Unknown [id number] 1987 Unknown [id number] Social History Date Type Detail Facility [facility] [employer] Phone: Start: 1985 Sex Assigned At Not on file [facility] Work Phone: Start: 01-16-2021 End: 05-31-2023 Tobacco smoking status Never smoked tobacco (finding) [facility] Tobacco smoking status Never [facility] Start: 05-31-2023 End: 08-28-2023 Sex Assigned At Female [facility] Start: 05-31-2023 Tobacco use and exposure Smokeless tobacco non-user [facility] Start: 08-28-2023 Alcohol intake Current drinker of alcohol (finding) [facility] Start: 05-31-2023 End: 08-28-2023 History of Social function [facility] Start: 08-28-2023 Alcohol Comment Caffeine intake: 1-2 cups per day soda/pop, chocolate, soda [facility] Start: 1985 Sex Assigned At Female [facility] Start: 05-24-2023 Gender identity Identifies as female gender (finding) [facility] Start: 05-24-2023 Sexual orientation Heterosexual (finding) [facility] Within the last year , have you been afraid of your partner or ex-partner? No [facility] Do you belong to any clubs or organizations such as sikhism groups, unions, fraternal or athletic groups, or school groups? Yes [facility] Are you now , , , , never or living with a partner? [facility] How often to you hav e a drink containing alcohol? 2-4 times a month [facility] How many standard dr inks containing alcohol do you have on a typical day? 1 or 2 [facility] How often do you hav e 6 or more drinks on 1 occasion? Never [facility] Do you feel stress - tense, restless, nervous, or anxious, or unable to sleep at night because your mind is troubled all the time - these days [OSQ] To some extent [facility] (I/We) worried wheth er (my/our) food would run out before (I/we) got money to buy more. Never true [facility] Evaluation + Plan note Note Date & Type Note Facility Evaluation + Plan note No data available for this section [facility] Evaluation note Note Date & Type Note Facility Evaluation note Diagnosis Right shoulder pain, unspecified chronicity documented in this encounter [facility] Work Phone: Hospital Discharge instructions Note Date & Type Note Facility Hospital Discharge instructions No data available for this section [facility] Summary Purpose Family History No Family History Records FoundNo Family History Records FoundNo Family History Records Found Advance Directives No Advanced Directives Records FoundNo Advanced Directives Records FoundNo Advanced Directives Records Found Additional Source Comments INFORMATION SOURCE (unrecogn ized section and content) DATE CREATED AUTHOR 05/15/2021 Odette Galvez lexii DATE CREATED AUTHOR AUTHOR'S ORGANIZ ATION 01/21/2022 [facility] DATE CREATED AUTHOR AUTHOR'S ORGANIZ ATION 10/04/2023 [facility] [employer] Care Teams (unrecognized sec tion and content) Call Center Manager Relationship Specialty Start Date End Date Ramonita Green MD [address] [place] [address] PCP - General Family Medicine 11/28/22 FOR RECORDS PERTAINING TO PATIENTS WHO ARE OR HAVE BEEN ENROLLED IN A CHEMICAL DEPENDENCY/SUBSTANCEABUSE PROGRAM, SOME INFORMATION MAY BE OMITTED. This clinical summary was aggregated from multiple sources. Caution should be exercised in using it in the provision of clinical care. This summary normalizes information from multiple sources, and as a consequence, information in this document may materially change the coding, format and clinical context of patient data. In addition, data may be omitted in some cases. CLINICAL DECISIONS SHOULD BE BASED ON THE PRIMARY CLINICAL RECORDS. [employer] [facility]. provides no warranty or guarantee of the accuracy or completeness of information in this document.
[2023-10-18 08:12] LABS: Progesterone 21.1 ng/mL (.)
== END 2023-10-16 15:34 | disposition home or self-care (01) ==
LOC: LAB 15:35
PROVIDERS: Family Provider Family Medicine; Visit Provider Obstetrics & Gynecology
DX: E34.9 Endocrine disorder, unspecified (principal)
CPT/HCPCS: 36415; 84144

== ENCOUNTER 2023-11-12 16:25 | Outpatient (OUT) | payer BC, SELFPAY ==
[2023-11-14 12:08] LABS: Progesterone 20.2 ng/mL (.)
== END 2023-11-12 16:26 | disposition home or self-care (01) ==
LOC: LAB 16:26
PROVIDERS: Family Provider Family Medicine; Visit Provider Obstetrics & Gynecology
DX: E34.9 Endocrine disorder, unspecified (principal)
CPT/HCPCS: 36415; 84144

== ENCOUNTER 2024-01-09 20:13 | Outpatient (REF) | payer BC, SELFPAY ==
[2024-01-14 09:08] LABS: Age Gdln ACOG Testing Note (.); HPV Aptima Negative (Negative); IGP, Aptima HPV, rfx 16/18,45 Note (.)
== END 2024-01-09 20:14 | disposition home or self-care (01) ==
LOC: LAB 20:13
PROVIDERS: Family Provider Family Medicine; Visit Provider Obstetrics & Gynecology
DX: Z01.419 Encounter for gynecological examination (general) (routine) without abnormal findings (principal)
CPT/HCPCS: 87624; 88175

== ENCOUNTER 2024-01-21 07:30 | Day surgery (SDC) | payer BC, SELFPAY ==
--- OUTSIDE RECORDS SUMMARY | 2024-01-21 07:35 | XMS_ITS ---
Patient Summarization (C-CDA 2.1 CCD) Created on: January 21, 2024 NANY SEWELL : 1985 Sex: Female Author Organization Sample organization Care Team Providers Care Carton Filler Name Role Phone Ramonita Green MD Primary Care Provider ABBY MINER Referring Unavailab le GREEN, RAMONITA Primary Care Unavailable ABBY MINER Referring Unavailab le GREEN, RAMONITA Primary Care Unavailable ABBY MINER Referring Unavailab le GREEN, RAMONITA Primary Care Unavailable ABBY MINER Referring Unavailab le GREEN, RAMONITA Primary Care Unavailable Ramonita Green Primary Care Physician Ramonita Green MD Primary Care Provider Larissa SALGADO R Attending Unavailable YARITZA, Larissa R Admitting Unavailable RAMONITA GREEN Attending Unavailable YARITZA, LARISSA Attending Unavailable ABBY MINER Attending Unavailable PETITTI, ZEYAD Gifford Attending Unavailable RAMONITA GREEN Referring Unavailable PETITTI, ZEYAD Gifford Attending Unavailable PETITTI, ZEYAD Gifford Attending Unavailable RAMONITA GREEN Attending Unavailable YARITZA, LARISSA Attending Unavailable YARITZA, Larissa R Attending Unavailable YARITZA, Larissa R Admitting Unavailable YARITZA, Larissa R Admitting Unavailable YARITZA, Larissa R Attending Unavailable Encounters Encounter Date Encounter Type Care Provider Facility Start: 01-09-2024 End: 01-09-2024 ambulatory LARISSA SALGADO Not Available Start: 01-08-2024 End: 01-08-2024 ambulatory RAMONITA GREEN Not Available Start: 12-11-2023 ambulatory Larissa R YARITZA Facility: [facility] Start: 12-11-2023 End: 12-11-2023 ambulatory Larissa R YARITZA Facility:[facility] Start: 12-11-2023 End: 12-11-2023 Patient encounter procedure Larissa SALGADO [facility] Start: 11-20-2023 End: 11-20-2023 ambulatory ZEYAD A PETITTI Not Available Start: 11-08-2023 End: 11-08-2023 ambulatory RAMONITA GREEN Not Available Start: 11-07-2023 End: 11-07-2023 ambulatory ZEYAD A PETITTI Not Available Start: 10-15-2023 End: 10-15-2023 ambulatory ZEYAD A PETITTI Not Available Start: 10-02-2023 End: 10-02-2023 ambulatory ABBY MINER Not Available Start: 09-19-2023 End: 09-19-2023 ambulatory LARISSA YARITZA Not Available Start: 09-04-2023 End: 09-04-2023 ambulatory RAMONITA GREEN Not Available Start: 09-04-2023 Bamboo flowsheet Ramonita green MD Work Phone: [facility] Start: 09-04-2023 Bamboo flowsheet Ramonita green MD Work Phone: [facility] Start: 08-28-2023 Chart abstracting Ramonita jin MD Work Phone: [facility] Start: 08-01-2021 End: 10-30-2021 Patient encounter procedure Ramonita Green [facility] Start: 05-11-2021 End: 05-14-2021 ambulatory ABBY MINER [facility] Start: 05-11-2021 End: 05-14-2021 ambulatory ABBY MINER [facility] Start: 05-11-2021 End: 05-13-2021 Subsequent hospital visit by physician Ramonita Green MD Work Phone: [facility] Start: 12-29-2020 End: 01-01-2021 ambulatory ABBY MINER [facility] Start: 12-29-2020 End: 01-01-2021 ambulatory ABBY MINER [facility] Start: 12-29-2020 End: 12-31-2020 Subsequent hospital visit by physician Gorge [facility] 1 [facility] Comment on above: Right shoulder pain, unspecified chronicity Start: 12-29-2020 End: 12-31-2020 Subsequent hospital visit by physician Ramonita Green MD Work Phone: [facility] Immunizations Immunization Date Immunization Notes Care Provider Fa qiana 05-09-2021 influenza virus vaccine, unspecified formulation; Translations: [Fluzone PF Quadrivalent ] Ramonita Green [facility] Comment on above: Reason for Medicatio n: Prophylaxis 08-26-2020 SARS-CoV-2 (COVID-19 ) mRNA-1273 vaccine Ramonita Green [facility] 07-29-2020 SARS-CoV-2 (COVID-19 ) mRNA-1273 vaccine Ramonita Green [facility] 01-25-2017 tetanus toxoid, redu oswaldo diphtheria toxoid, and acellular pertussis vaccine, adsorbed; Translations: [Adacel (Tdap)] Ramonita Green [facility] Medications Current Medications Medication Drug Class(es) Dates Sig (Normalized) Sig (Original) Aurovela 24 Fe oral tablet (1 source) Start: 01-16-2021 take 1 tablet by mouth once daily Aurovela 24 Fe oral tablet tab(s), Oral, Daily, Refill(s) 0 Start Date: 01/16/21 Status: Ordered ethinyl estradiol 0.02 mg / ferrous fumarate 75 mg / norethindrone 1 mg oral tablet (1 source) Estrogen Start: 01-16-2021 take 1 tablet by mouth once daily Aurovela 24 Fe oral tablet tab(s), Oral, Daily, Refill(s) 0 Start Date: 01/16/21 Status: Ordered ibuprofen 200 mg oral tablet (2 sources) Nonsteroidal Anti-inflammatory Drug Start: 09-28-2005 ibuprofen 200 MG tablet Ventolin HFA 90 mcg/inh Aerosol (2 sources) Start: 01-16-2021 take 2 puff(s) by inhalation every six hours for wheezing Ventolin HFA 90 mcg/inh Aerosol 2 puff(s), Inhalation, q6hr for wheezing, 18 gram, Refill(s) 0, [id number], 172, cm, 01/16/21 9:36:00 EDT, Height/Length Dosing, 114.1, kg, 01/16/21 9:36:00 EDT, Weight Dosing Start Date: 01/16/21 Status: Ordered Payers Date Payer Category Payer Unknown BCBS BCBS xxxxxx [id number] 2021-Present [phone] [address] [place] [address] [id number] 2021 Unknown [id number] 2020 Unknown [id number] [id number] 1985 Unknown [id number] 2.16.840.1.375220.3.579.2.174 1985 Unknown [id number] 2.16.840.1.910083.3.579.2.174 1985 Unknown [id number] 2.16.840.1.105930.3.579.2.174 1985 Unknown [id number] 2.16.840.1.894023.3.579.2.174 1985 Unknown [id number] 2.16.840.1.779963.3.579.2.727 1985 Unknown [id number] 2.16.840.1.927701.3.579.2.9 1985 Unknown [id number] 2.16.840.1.044469.3.579.2.1259 1985 Unknown [id number] 2.16.840.1.480159.3.579.2.9 1985 Unknown [id number] 2.16.840.1.088236.3.579.2.1258 1985 Unknown [id number] 2.16.840.1.757068.3.579.2.1258 1985 Unknown [id number] 2.16.840.1.255692.3.579.2.1258 1985 Unknown [id number] 2.16.840.1.287835.3.579.2.1258 1985 Unknown [id number] 2.16.840.1.629852.3.579.2.1258 1985 Unknown [id number] 2.16.840.1.480531.3.579.2.1258 1985 Unknown [id number] 2.16.840.1.785071.3.579.2.727 Plan of Treatment Date Care Activity Detail Author Start: 01-25-2027 DTaP/Tdap/Td vaccine (2 - Td or Tdap) DTaP/Tdap/Td vaccine (2 - Td or Tdap) [employer] Phone: Start: 01-25-2027 DTaP/Tdap/Td vaccine (8 - Td or Tdap) DTaP/Tdap/Td vaccine (8 - Td or Tdap) [employer] Phone: Start: 09-19-2023 End: 09-19-2023 Patient encounter procedure 09/19/2023 1:10 PM EST Office Visit [facility] [address] [id number] Larissa Salgado, DO [address] [place], [place] [id number] [facility] Start: 09-04-2023 End: 09-04-2023 Patient encounter procedure [facility] Comment on above: Arrived Start: 03-23-2023 Influenza vaccination Influenz a Vaccine (#1) [facility] Start: 03-23-2021 Influenza vaccination Flu vacc ine (Season Ended) [employer] Phone: Start: 11-12-2017 Screening for malign ant neoplasm of cervix [facility] Start: 11-12-2008 Screening for malign ant neoplasm of cervix [facility] Start: 03-26-2006 Hepatitis B vaccine (3 of 3 - 3-dose primary series) Hepatitis B vaccine (3 of 3 - 3-dose primary series) [facility]: Start: 11-12-2002 HIV screening HIV screen [facility] Work Phone: Start: 1999 COVID-19 Vaccine (1) COVID-19 Vaccin e (1) [facility] Phone: Start: 11-12-1988 Varicella vaccine (1 of 2 - 2-dose childhood series) Varicella vaccine (1 of 2 - 2-dose childhood series) [facility] Phone: Start: 1987 Hepatitis C screening Hepatitis C sc reen [facility] Phone: Problems Active Problems Problem Classification Problem Date Documented Da te Episodic/Chronic Acute and chronic tonsillitis (2 sources) Chronic tonsillitis 10-03-2013 Chronic Biliary tract disease (2 sources) Biliary calculus 05-29-2016 Episodic Other non-traumatic joint disorders (1 source) Shoulder pain; Translations: [Pain in right shoulder] Episodic Past or Other Problems Problem Classification Problem Date Documented Da te Episodic/Chronic Unclassified (1 source) Exposure to 2019 novel coronavirus; Translations: [Contact with and (suspected) exposure to COVID19] Procedures Date Procedure Procedure Detail Performing Clinician [...] lymph node structure (body structure) Ramonita Green Results Test Name Value Interpretation Reference Range Facility Coding Summary.on 01-09-2024 Coding Summary. GXDTGail68YGn8aFa+PG hlYWQ+PP8EXZGnS05dhE SpqO6bV9QLACeVKywmFU ILZHjACnZgfpVoAX4aiB NjZXJu IC8+MX5pAZLqMalnkXPn g4G7lOT2S37bdm9iNVvf fUH1FLCuNzDisnmbp2gk yZw5CRpqSzpsAjIw LTWenU11LOO2uL10Ab07 gUTxjODlk5eqkSh9JkKs VTAyMGO5kJrhJBpnh3Jv TSAfP30eoIKli2V2 IGNvbGxhcHNlOyBlbXB0 fY9cRIzkhdnyu3fnkznd Jjc3hs37jQDlf3T7aZL3 R8TqnnO2TIIjdGPj SaqlpTASyW6iamkad1pl dqfgBsFgJRBaRSr1YUq2 CHZimOksDsXnPS97URH5 RSMijzVpT7QmSHUs cUsnPuC3r8B0Fd8AD3RQ CunyT1EEMPERZUjmsZY+ CC70zb45O5PuQefsQru1 OPMfSVL4pTR0mZ9x ILDyRQxzx7J0dTB0C1Yo lfHerf5lm0vjCWQeHJkl T86lkPJnv5N6UGWtxOK2 IIJobBvbUnGuhV45 Oyc+GEKwuPxet4PkPjan k3kdj4jojXg3HdmsTWDo dvSpfAytVGW6v9SmTo0s VZUygZL9mRA3uY8l SgTiSzS1RHjsU094GtMd dIUgLqwyB64oR6SssTT+ FLXjArq9XUSayBggGS0a V6UgBGOnvlsxkWCm sNwmPN9iLBMrrcpeEZWw vC6jHQZqF9q9AqKuQbE7 MRewM2WvTDEituvqEe19 qJ2aNtBfHkN6RMyb R0RiypD0FOCsbOHqURwf BYE7Q75hh7M0ZKMtXOTu ILO3hTQ4fY5kfQgwgpyo bGVmdDsgdmVydGlj GLeoFNmrJ746NMJqyUlr PkNvZGluZyBEYXRlOiAg MDYvMTkvMjAyNDwvdGQ+ PMXnMSH4aAluUFEt oZDfNNswSm7trNkfmOmr SB6nKMZyzbuiIOPvkG8l TTMtpMFgoWneUT9xVXPo cgzqm490YkKoLHY7 YBInoWAgV4VppV2bDgRh LIEgMOGdZ0RvmXXoLTpz R378TNlvQyF3JWXdqzEi J2YbCBGlmXqxAiS3 a9P7Hv5Re1FbyoerR3Ct qALgJeYxOegnGCl2N9Bq PjwvdHI+MF15ZQNcUZ67 LLm7TGT3cMnvKNrm NCOdV2UrqJ7nZbSrVGAu ZGRkOyc+PHRhYmxlIHdp ZHRoPScxMDAlJyBzdHls AP4fRi1dEORsTPKc tOzokQPkJgGll6tpYAHf VCnlGM6zqJboO5KbmVE5 CTNmo5q0Op38G25yA6Oe dXA+ZKQtkOM2iAS6 xH5tJpAwZkV0MVniY212 FlBvpLOgUlqls9lqw9kg bLk4PnZ7CTRsuwBtcAwo VWH1v2ZfQg50S05f IHdpZHRoPSIxNSUiIHZh qLhlgo1bdW9qCp4+PGNv fKR1vYL0kO5oPuWgVnA3 ESktI738JkDvsNCu Orokb6tiz9nwjRa0BqSe JWFrhwJinBuoPFX2o5Ix Xd64K0SoqRalt5YbAbt5 ix88sPLwh1H0kKR6 I8NoVEWipbzmcQUjwYug IZ7hTXUpetrmJUKtcU3q CTWuD6q6HhKjCsT7VBat Z5HhliW7AGXzwSZd FQFezNZGgB6wxlksr2xj bfgcHfKyJEXaVLv5ATb4 ARKmgUirJpHxBZC2PfM9 NXL6yAMakJ9gdQyb gymhnE8hIqg+RNU1bKKg qXFJRO4dLfpqoXE+PHRk WJP7jXjeULldQMJyuB9z OUCoU1w9LpKuTxZ4 QSrvJ6YjduP2VTDaqUMq YRJnqWRQaO5oywrni9qx wtfkThSqHKHfTXt4ERn6 LWFsaWduOiBsZWZ0 AbH5LUM9dKWnbF7ryHog iuxmiS9nQav+QmlydGgg FKC4QRd8M9BwVak1QCGu wJogAK7prOSoRVdo Rw6fbFmuxHqeNA7tBEJq xnpic568EyIks8leSRKj dMNcCJdfMVO9A06qd7V1 WEIrUCAsWHK0kAA9 gP1wmOwjfhzqcILspIbz eeIacSvzVNhgZOpiN479 KTRzeIbxUaLtTNr9R2Rh Ruf7GEZmeBmdGR7h gPHfZImsCe2dzViceKnc OE4rRXTiyumls313IqGy l4bgUWHtbVUpIIpgCIM5 K94xb5S7NPFgSBKg FXH2pPX5mG5agSnzvzgu bGVmdDsgdmVydGljYWwt WAfsV362BYXusVlaSkKn hIr5O2ToCcl6HMFm vRheNC8riLKiXZpnNw1o gPhrqYxcGQ2vVOHjtpci b487CtLln6vyBZIeoVEi RCosAHG5P94bx2C4 XJOyJERlRHF3zLT7gH8a bGlnbjogbGVmdDsgdmVy zRemWTavQFldK647BVEw cDsnPlBhdGllbnQg IBnkTFz8U6LdBadwbOT+ UY11SJCcKQ92vPOawMSx o4pcnWx4FzUrRINtJDW2 vFiuMDqyt1FsWDQx L90vyREqk3G4YESzfHvu rSHeMtXyuQQ8vT0vZAfa peeng5tgndqaJuqri0zk ot99iW79L32pCPux ZHRoPSIzMCUiIHZhbGln mo1cdI3eWd7+PGNvbCB3 eJL9mD5sJTMtGaV0GBlz H810PvAuaEEyLavj v6cza4yoxDx6GuH8JZXf ojGeiRhuTZL7j8QhCy13 H56hPHdbFVYtYEUlXEUe PTRefTllzc2tfP6y Ii8+HNOwyUT2lPA4gM7v NwGiAxR2XFimM270VtAn mLBrFdouE31hQ1KuaZW+ GGYiOrg4QTJlwTgg KL8jtZDdWGcmTs1iBUS2 CtAwNxYtQTcvZ2VrGVVk pakgjuboeRZ9JWZlHNUh jZ95Hc4bzXbzUUSl oJKKqW2riqrkw7ckzdgk GfJwEBTjRCo9LJv4HWSd sArjAfZaEHA1NuA5DGU2 oTOedJ8zzNmfksvl wC1bU4CeMBUmfwnqAu92 nY7cCrFwVzB6AHdsTfx+ QkxBSVIsIEFMRUEgTjwv dGQ+FYRrWJY5yKnd ODnrKFUijB0sKLUrS0q2 TgJlWbT9VMcpA5WdNVKd ujftFr51qR3aZaZfPcU8 YWlrW6SgdpM7BNOp uAAtMKwmORT4W57oq5T7 HUYuFULjQBD2jAQ4bT1d bGlnbjogbGVmdDsgdmVy lLsxDUefJMsrM835 QOMwwErcGbC5JjNcPnF2 LIa0S7MgWlh5ZCQlfNby IW3frGZdASzxVk8oxHvy eLjeYZ1vAMMhcwgh NQBaeQ8pKQLofSZykLfx WL1kNRLqdqfxf334PjQv TDH1CRYlxBCuI1WylI3i CiBxCHYiUMOgQ3Fm fSXiILwzN203UBkrYgY2 YFSlszAgV2QcAEPdvEoi VfW5h0D1Nl9cHpDPXYWf czwvdGQ+PHRkIHN0 eTkfRRfeKWDesK8zFNAj N3n5RqQmTvW4YRgcP0Eh JFFtqrioIt71jL2iSyLk PjQ1UBrnO0GmnoW7 ICXcoKLoWNrwVRK8G89i p5H6VQSjMABeCKJ6pJE7 fZ5enYzbekxpyBLpbEvm dmVydGljYWwtYWxp L309DKOcmVtyFgLehXTm ZTwvdGQ+PAEhLDZ1aKrr OBazNOXiwH7rOAUxO4s5 YmSxHcV6XHxkK6Ce IJKrsauzNo73xC7kNpOm TiK9TOlnP6JcbtV3PPCg kMOwRFdeEWS4M66yc0U0 ZBLvWKEiRMW0cOH1 xP7heHuavhiycFDmqDga mpXfaFntHPodGBgoE309 LJBjiQizJpExQ6Syjjeb ZzwvdGQ+IK86xt40 O3YsClyfQeh0KQVrCSY7 tIX4eO5zHIOrFQaji2C7 rMX0B5ShxvBtgo4mq4ss MMPhIFwbK07ddHIh k3F6MNDpuKQ4QTTovUkq GrFgxW47Oam+PGNvbGdy r9SiBtbkx9wox5muxWl4 IjMwJSIgdmFsaWdu EPP2w2JuIy19U50pYJgp ZHRoPSIzMCUiIHZhbGln rs6btX5sQw2+PGNvbCB3 qNG1oQ8aRkWpQeH7 RHjdJ668FvDbcFTeHfkn l8aop5wkpTk2CoBzEUTs utAbpIjpPWO7u6IkIn85 P6WlyVpcv6WiPar5 fp47aJVjp1O9gQC4H2Kq WCEgsaascIAruPafUQ2z AVFbbgrxNKQpbR2yGISt H2p4OkElToG0GWmo L2OdauE5XGIsnXBfNIJc nKGKcU8btwnxc8iuarzz OlSvKICxIWs9ZOx6NCAm iFotLdIjBTH8YtN9 TEM0xUFkmV1pvLxjcnlq xM3qYls+GRh2e2vkfPHp SQ2kuYJ8LS17EJ78gFLu q4C7vON1N1QaHUPy spwwdoqxaCQ8XHRgHWHe vV71Le5utCsjBt9dXKXq ZAR6CUFosNTrL1XrjF0t CtJyMQUhIUCdS9Qt wHOhPKavR834FRojRtG1 KQOjfqPpA4NtSQCrzLtk VtB1k5J0Zi5RFJ23CV38 GB08qGYqe9J8iAS1 S3MbYCFjqvvimyufrPL4 VNEtXHFpcM18Jt1fqOjp Kj0tXCGxFRG4KQPhcYZr I6RvxW8pPnHvCLAs GHOsG6ZdgHSwBUohK904 FDqtYrK2HJSznlPaK6As EXSiqWlmFgS8s1S8Ig5J Qs70WI41XU40sYZx t9H0dGY9X4PcJPUjsibz fhuhhNZ1IKMlGJYntQ86 Hv1ovZqdMy0bKLBmIIX1 HVNirQEcA9BbvK1v EwWvGAViQLVrQ7ArtPKt JNmyX669LPxiPgS6MLQw krZqO0KvWFIbfKwwPfF8 f5M4Qb9JUGxfhoh6 J8LwLnrgyAU+RE65SZNy MJ01bCVwfTAas9blnHb1 SoOrNEFbDYA0pIuwBWjv g7YvTJNlW58ljAPj m3K1YTNaeLkwf (more content not included)... Normal [facility] Consent for Treatmenton 12-21 Consent for Treatment [id number] #1.00TIFF [facility] Physician Orderon 01-08-2024 Physician Order [id number] #1.00TIFF Normal [facility] Progesteroneon 01-08-2024 Progesterone Lvl 13.54 ng/mL Invalid Interpretation Code [facility] Comment on above: Result Comment: 'F N ON FOLLICULAR = 0.10 - 0.60' 'LUTEAL = 3.00 - 17.5' 'MIDLUTEAL = 3.30 - 18.6' 'POST-MENOPAUSE = 0.10 - 0.40' '-FIRST TRIMESTER = 8.30 - 66.5' 'SECOND TRIMESTER = 18.9 - 66.1' 'THIRD TRIMESTER = 35.8 - 312.4' 'MALES = 0.14 - 2.06' Performed By: #### 2 [id number] #### [facility] [address] [place] [address] CHEMISTRYOrdered By: SYSTEM SYSTEM on 12-11-2023 Progesterone Lvl 12.78 ng/mL Invalid Interpretation Code [facility] Comment on above: Result Comment: 'F N ON FOLLICULAR = 0.10 - 0.60' 'LUTEAL = 3.00 - 17.5' 'MIDLUTEAL = 3.30 - 18.6' 'POST-MENOPAUSE = 0.10 - 0.40' '-FIRST TRIMESTER = 8.30 - 66.5' 'SECOND TRIMESTER = 18.9 - 66.1' 'THIRD TRIMESTER = 35.8 - 312.4' 'MALES = 0.14 - 2.06' Consent for Treatmenton 11-21 Consent for Treatment [id number] #1.00TIFF Normal [facility] Physician Orderon 12-11-2023 Physician Order [id number] #1.00TIFF Normal [facility] Physician Order [id number] 1#1.00TIFF Normal [facility] Progesteroneon 12-11-2023 Progesterone Lvl 12.78 ng/mL Invalid Interpretation Code [facility] Comment on above: Result Comment: 'F N ON FOLLICULAR = 0.10 - 0.60' 'LUTEAL = 3.00 - 17.5' 'MIDLUTEAL = 3.30 - 18.6' 'POST-MENOPAUSE = 0.10 - 0.40' '-FIRST TRIMESTER = 8.30 - 66.5' 'SECOND TRIMESTER = 18.9 - 66.1' 'THIRD TRIMESTER = 35.8 - 312.4' 'MALES = 0.14 - 2.06' Performed By: #### 2 [id number] #### [facility] [address] [place] [address] Reference Laboratory Testing Ordered By: [facility] [employer] on 08-01-2021 SARS-CoV-2 (COVID-19) RNA JESSE+probe Ql (Resp) Not detected Invalid Interpretation Code Not Detected [facility] [employer] Comment on above: Result Comment: This nucleic acid amplification test was developed and its performance characteristics determined by [employer]. Nucleic acid amplification tests include RT-PCR and [...] detected) result in this assay. Performed at: [address] [id number] PhD Buck Roblero XR KNEE LEFT (MIN [...] Jodi Rhodes MD 05/12/21 Final result Normal [facility] XR SHOULDER RIGHT (MIN 2 VIE WS)on [...] Benitez Grayson DO 12/29/20 Final result Normal [facility] XR SHOULDER RIGHT (MIN 2 VIE WS)Ordered By: Abby Miner on 12-29-2020 No acute right shoulder abnormality or significant degenerative change. [employer] Phone: EXAM: XR SHOULDER RIGHT (MIN 2 VIEWS) HISTORY: M25.511 Right shoulder pain. COMPARISON: None. TECHNIQUE: AP, external rotation, and scapular Y views of the right shoulder FINDINGS: No fracture, dislocation, or advanced degenerative changes seen. No bursal or soft tissue calcifications are apparent. Two punctate densities overlying the soft tissues appear to be artifactual. Right sided ribs included appear satisfactory. [employer] Phone: Alejo, M[employer] Incoming Radiant Results From [employer] - 12/29/2020 11:47 AM EDT EXAM: XR [...] right shoulder abnormality or significant degenerative change. [employer] Phone: [employer] Phone: Social History Date Type Detail Facility Start: 08-28-2023 Alcohol intake Current drinker of alcohol (finding) [facility] Start: 08-28-2023 Alcohol Comment Caffeine intake: 1-2 cups per day soda/pop, chocolate, soda [facility] Start: 05-31-2023 End: 08-28-2023 Sex Assigned At Female [facility] Start: 05-31-2023 Tobacco use and exposure Smokeless tobacco non-user [facility] Start: 05-31-2023 End: 08-28-2023 History of Social function [facility] Start: 05-24-2023 Gender identity Identifies as female gender (finding) [facility] Start: 05-24-2023 Sexual orientation Heterosexual (finding) [facility] Start: 01-16-2021 End: 05-31-2023 Tobacco smoking status Never smoked tobacco (finding) [facility] Start: 1985 Sex Assigned At Not on file [employer] Phone: Start: 1985 Sex Assigned At Female [facility] Tobacco smoking stat us COIS Unknown if ever smoked [employer] Phone: Tobacco smoking status Never [facility] Within the last year , have you been afraid of your partner or ex-partner? No [facility] Do you belong to any clubs or organizations such as buddhist groups, unions, fraternal or athletic groups, or [...] No data available for this section [facility] Evaluation note Note Date & Type Note Facility Evaluation note Diagnosis Right shoulder pain, unspecified chronicity documented in this encounter [employer] Phone: Hospital Discharge instructions Note Date & Type Note Facility Hospital Discharge instructions No data available for this section [facility] Progress note Note Date & Type Note Facility Progress note No data available for this section [facility] Summary Purpose Family History No Family History Records Found No data available for this section No Family History Records FoundNo Family History Records FoundNo Family History Records FoundNo Family History Records Found Advance Directives No Advanced Directives Records FoundNo Advanced Directives Records FoundNo Advanced Directives Records FoundNo Advanced Directives Records FoundNo Advanced Directives Records Found Additional Source Comments INFORMATION SOURCE (unrecogn ized section and content) DATE CREATED AUTHOR 05/15/2021 [facility] DATE CREATED AUTHOR AUTHOR'S ORGANIZ ATION 12/14/2023 [facility] DATE CREATED AUTHOR AUTHOR'S ORGANIZ ATION 01/10/2024 [facility] DATE CREATED AUTHOR AUTHOR'S ORGANIZ ATION 01/10/2024 [facility] Care Teams (unrecognized sec tion and content) Carton F[employer] Relationship Specialty Start Date End Date Ramonita Green MD [address] [place] [address] PCP - General Family Medicine 11/28/22 FOR [...] BE BASED ON THE PRIMARY CLINICAL RECORDS. [facility]. provides no warranty or guarantee of the accuracy or completeness of information in this document.
--- NOTE | 2024-01-21 07:44 | FL_ITS ---
The [address] [address] Patient Name: NANY SEWELL MRN: [id number] date: 1985 Sex: F Assigned Patient Location: LAB Current Patient Location: LAB Accession/Order Number: [id number] Exam Date: 01/21/2024 08:30 Report Date: 01/21/2024 09:12 At the request of: LARISSA VIGIL Procedure: FL hysterosalpingography EXAMINATION: FL hysterosalpingography, FL Hysterosal cath placement HISTORY: Infertility COMPARISON: No relevant comparison available. TECHNIQUE: Informed consent was obtained. A sterile vaginal speculum was introduced and, following cleansing of the cervix, a balloon-tipped catheter was inserted into the endometrial cavity. The procedure was then completed in the usual manner with water-soluble contrast. Standard level fluoroscopic mode of operation utilized. FINDINGS: FALLOPIAN TUBES: Patent fallopian tubes bilaterally. Slight delay in opening of the left fallopian tube. ENDOMETRIAL CAVITY: No scarring, filling defects, or dilatation. OTHER: Complete bicornuate uterus. FL/FL hysterosalpingography IMPRESSION: 1. Complete bicornuate uterus. 2. Patent fallopian tubes bilaterally, with initial slight delay in opening of left fallopian tube. Electronically authenticated by: MARCUS LING Date: 01/21/2024 09:12
--- NOTE | 2024-01-21 07:44 | FL_ITS ---
The [address] [address] Patient Name: NANY SEWELL MRN: [id number] date: 1985 Sex: F Assigned Patient Location: LAB Current Patient Location: LAB Accession/Order Number: [id number] Exam Date: 01/21/2024 08:30 Report Date: 01/21/2024 09:12 At the request of: LARISSA VIGIL Procedure: FL Hysterosal cath placement EXAMINATION: FL hysterosalpingography, FL Hysterosal cath placement HISTORY: Infertility COMPARISON: No relevant comparison available. TECHNIQUE: Informed consent was obtained. A sterile vaginal speculum was introduced and, following cleansing of the cervix, a balloon-tipped catheter was inserted into the endometrial cavity. The procedure was then completed in the usual manner with water-soluble contrast. Standard level fluoroscopic mode of operation utilized. FINDINGS: FALLOPIAN TUBES: Patent fallopian tubes bilaterally. Slight delay in opening of the left fallopian tube. ENDOMETRIAL CAVITY: No scarring, filling defects, or dilatation. OTHER: Complete bicornuate uterus. FL/FL Hysterosal cath placement IMPRESSION: 1. Complete bicornuate uterus. 2. Patent fallopian tubes bilaterally, with initial slight delay in opening of left fallopian tube. Electronically authenticated by: MARCUS LING Date: 01/21/2024 09:12
--- NOTE | 2024-01-21 08:12 | PC.NURSE ---
01/16/24 Pt instructed on procedure, date, time ,and prep.
[2024-01-21 08:15] LABS: HCG Quantitative <1 mIU/mL
--- NOTE | 2024-01-21 09:37 | PC.NURSE ---
01/16/24 Called pt and made aware of date, time, prep, and prrocedure.
--- NOTE | 2024-01-21 09:39 | SUR.PREOP ---
0825 Noted quant hcg of <1. o 01/21/24
== END 2024-01-21 09:00 | disposition home or self-care (01) ==
LOC: LAB 07:30
PROVIDERS: Radiology Diagnostic Radiology; Family Provider Family Medicine; Visit Provider Obstetrics & Gynecology
DX: N83.9 Noninflammatory disorder of ovary, fallopian tube and broad ligament, unspecified (principal); E34.9 Endocrine disorder, unspecified; Q51.3 Bicornate uterus
CPT/HCPCS: 36415; 58340; 74740; 84702; Q9966

== ENCOUNTER 2025-07-06 20:37 | Outpatient (REF) | payer BC, SELFPAY ==
--- OUTSIDE RECORDS SUMMARY | 2024-02-28 09:00 | XMS_ITS ---
Author Organization [facility] Address [address] [place] [address] Care Team Providers Care Test Bore Helper Name Role Phone Marcus Kary Unavailable [phone] REASON FOR VISIT REF. FROM PCP Encounters Encounter Location Date Provider Diagnosis [facility] [address] [facility] [place] [address] 2023 Kary Patton Plan Of Treatment No Information Progress Notes * MAGGIE SEWELLB:1985 ([age] yo F)Acc No.[id number]:02/28/2024 Consult - Patient Patient: NANY DUMONT :?KARY PATTONDOB:1985???Age:38 Y???Sex:Female Date:02/28/2024hone:[phone]:[address] [place], [place] [id number] Subjective: * Chief Complaints: * R EF. FROM PCP Billing Information: * Procedure Codes: Care Plan Details* * Electronic signature of DEBBIE Cifuentes on 07/06/2025 at 12:59 PM ESTSign off status: Pending * Provider: Mykel PATTON Date: 0 02/28/2024 Generated for Printing/Faxing/eTransmitting on:?07/06/2025 12:59 PM EST
--- OUTSIDE RECORDS SUMMARY | 2025-07-06 13:00 | XMS_ITS | Encounter Summary ---
Author Organization [facility] Address [address] [place] [address] Care Team Providers Care Cook Enchilada Name Role Phone Ramonita Powers MD Primary Care Provider [phone] Reason for Visit * ReasonCommentsGynecologic Exam Encounter Details DateTypeDepartmentCare Team (Latest Contact Info)Nyqbxvnhznt04/15/2025 1:00 PM ESTOffice Visit [facility] [address] [place] [id number] Hong Salgado DO [address] [place], [facility]11 Well woman exam with routine gynecological exam Social History Tobacco UseTypesPacks/DayYears UsedDateSmoking Tobacco: NeverSmokeless Tobacco: NeverAlcohol UseStandard Drinks/WeekCommentsYes1 (1 standard drink = 0.6 oz pure alcohol)Caffeine intake: 1-2 cups per day soda/pop, chocolate, [id number] Health LiteracyAnswerDate RecordedHow often do you need to have someone help you when you read instructions, pamphlets, or other written material from your doctor or pharmacy?Never10/07/2024Humiliation, Afraid, Rape, and Kick questionnaireAnswer Date RecordedWithin the last year, have you been afraid of your partner or ex-partner?No08/28/2023Within the last year, have you been humiliated or emotionally abused in other ways by your partner or ex-partner?No08/28/2023 Within the last year, have you been kicked, hit, slapped, or otherwise physically hurt by your partner or ex-partner?No08/28/2023Within the last year, have you been raped or forced to have any kind of sexual activity by your part ner or ex-partner?No08/28/2023Social Connection and Isolation PanelAnswerDate RecordedIn a typical week, how many times do you talk on the phone with family, friends, or neighbors?More than three times a week10/07/2024How often do you get together with friends or relatives?Once a week10/07/2024How often do you attend restoration or hinduism services?More than 4 times per year10/07/2024Do you belong to any clubs or organizations such as restoration groups, unions, fraternal or athletic groups, or school groups?No10/07/2024How often do you attend meetings of the clubs or organizations you belong to?Never10/07/2024re you , , , , never , or living with a partner? 10/07/2024UDIT-CAnswerDate RecordedQ1: How often do you have a drink containing alcohol?Monthly or less10/07/2024Q2: How many drinks containing alcohol do you have on a typical day when you are drinking?1 or Q3: How often do you have six or more drinks on one occasion?Never10/07/2024Overall Financial Resource Strain (CARDIA)AnswerDate RecordedHow hard is it for you to pay for the very basics like food, housing, medical care, and heating?Not hard at all 10/07/2024[facility] [place] [facility] - Occupational Stress QuestionnaireAnswerDate RecordedDo you feel stress - tense, restless, nervous, or anxious, or unable to sleep at night because yourmind is troubled all the time - these days?Only a suurdf8410/07/2024Exercise Vital SignAnswerDate Recorded On average, how many days per week do you engage in moderate to strenuous exercise (like a brisk walk)?3 days10/07/2024On average, how many minutes do you engage in exercise at this level?60 min10/07/2024Hunger Vital SignAnswerDate RecordedWithin the past 12 months, you worried that your food would run out before you got the money to buymore.Never true10/07/2024Within the past 12 months, the food you bought just didn't last and you didn't have money to get more.Never true10/07/2024PRAPARE - TransportationAnswerDate RecordedIn the past 12 months, has lack of transportation kept you from medical appointments or from getting medications?No10/07/2024In the past 12 months, has lack of transportation kept you from meetings, work, or from getting things needed for daily living?No10/07/2024Housing Stability Vital SignAnswerDate RecordedIn the last 12 months, was there a time when you were not able to pay the mortgage or rent on time?No08/28/2023In the last 12 months, how many places have you lived?2 08/28/2023In the last 12 months, was there a time when you did not have a steady place to sleep or slept in [facility] (including now)?No08/28/2023Housing Stability Vital SignAnswerDate RecordedIn the last 12 months, was there a time when you were not able to pay the mortgage or rent on time?No10/07/2024In the past 12 months, how many times have you moved where you were living? At any time in the past 12 months, were you homeless or living in a senior care (including now)?No10/07/2024CommentsNoSex and Gender InformationValue Date RecordedSex Assigned at ImsknDxivxj49/02/2023 8:38 AM EDTLegal SexFemale 11/20/2022 8:33 PM EDTGender NhsugvnlMookvb58/02/2023 8:38 AM EDTSexual OikjowjdqjfYhgivnrq15/02/2023 8:38 AM EDTdocumented as of this encounter Last Filed Vital Signs Vital SignReadingTime TakenCommentsBlood Lhggmzrm972/7212/ 1:11 PM EST Pulse--Temperature--Respiratory Rate--Oxygen Saturation--Inhaled Oxygen Concentration--Olbhwc76.8 kg (220 lb)07/06/2025 1:11 PM ESTHeight--Body Mass Index33.45004/07/2025 3:20 PM EDTdocumented in this encounter Plan of Treatment DateTypeDepartmentCare Team (Latest Contact Info)Eokswuwlcuj94/31/2026 4:00 PM EDTOffice Visit [facility] [address] [place] [phone] Diane Chaves MD [address] [place] [address] 07/12/2026 3:00 PM ESTProcedure Visit [facility] [address] [place] [address] Hong Salgado DO [address] [place], [facility]11 NameTypePriorityAssociated DiagnosesOrder SchedulePap SmearPathology and CytologyRoutine Well woman exam with routine gynecological exam Ordered: 07/06/2025HPV DNA probe, amplifiedMicrobiologyRoutine Well woman exam with routine gynecological exam Ordered: 07/06/2025documented as of this encounter Visit Diagnoses Diagnosis Well woman exam with routine gynecological exam Routine gynecological examination documented in this encounter Care Teams Team MemberRelationshipSpecialtyStart DateEnd Date Ramonita Powers MD [address] [place] [address] PCP - GeneralFamily Medicine11/28/22documented as of this encounter
--- OUTSIDE RECORDS SUMMARY | 2025-07-06 20:40 | XMS_ITS | Clinical Summary ---
Author Organization [facility] Address [address] 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 Take before meals. Active tirzepatide (Mounjaro) 2.5 mg/0.5 mL pen injector Inject 5 mg under the skin 1 (one) time per week.4Active progesterone (Prometrium) 100 mg capsule Indications:Female infertilityInsert 1 capsule (100 mg) into the vagina 2 times a day starting 3 days after IUI 60 capsule 02/13/2025 1:38 PM EDT507/6Active chorionic gonadotropin (Pregnyl) 10,000 unit injection Indications:Female infertilityReconstitute according to instructions and inject 10,000 units (1 mL) under the skin as a one time dose, as directed per provider for trigger. 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 Female infertility (Primary Dx); Hypothyroidism, unspecified type; Fertility testing; Screening for STDs (sexually transmitted diseases)04/06/2025Travelfrom Last 3 Months Family History Medical HistoryRelationNameCommentsDiabetesMaternal GrandfatherDonald Stoldt DiabetesMaternal GrandmotherMarjorie StoldtArthritisMotherDebra Max HyperlipidemiaMotherDebra MohrHypertensionMotherDebra MohrMiscarriages / StillbirthsMotherDebra MohrObesityMotherDebra MohrCOPDPaternal GrandfatherMilo HartHeart diseasePaternal GrandfatherMilo HartHeart diseasePaternal Grandmother Kasey HartRelationNameStatusCommentsMaternal GrandfatherDonald StoldtAlive Maternal GrandmotherMarjorie StoldtDeceasedMotherDebra MohrAlivePaternal GrandfatherMilo HartAlivePaternal GrandmotherGeorgia HartAlive Social History Tobacco UseTypesPacks/DayYears UsedDateSmoking Tobacco: NeverPassive Smoke Exposure: NeverSmokeless Tobacco: Never Tobacco Cessation:Counseling Given: Not Answered Alcohol UseStandard Drinks/WeekCommentsYes0 (1 standard drink = 0.6 oz pure alcohol)socialPHQ-2AnswerDate RecordedPatient Health Questionnaire-2 Score0 09/26/2024CommentsNoSex and Gender InformationValueDate RecordedSex Assigned at BirthNot on fileLegal AoqFkfvdw63/08/2024 7:25 AM EDTGender Identity Not on fileSexual OrientationNot on file Last Filed Vital Signs Vital SignReadingTime TakenCommentsBlood Rjzyqxkp214/6801 2:30 PM EST Tjdjs078302/2025 2:30 PM DVEVhrvgjxtroz33.1 ??C (97 ??F)07/30/2024 2:30 PM EST Respiratory Wcvg704007/30/2024 2:30 PM ESTOxygen Twgxqgieba103%07/30/2024 2:30 PM ESTInhaled Oxygen Concentration--Coemdu316 kg (250 lb)04/06/2025 7:10 AM EDT Nbwdfj229.7 cm (5' 8 )04/06/2025 7:10 AM EDTBody Mass Index38.01004/06/2025 7:10 AM EDT Plan of Treatment Health MaintenanceDue DateLast DoneCommentsHPV/Twcthd6611/12/2008HPV Vaccines (1 - 3-dose standard series)11/12/2014Yearly Adult Wgoaimfa95/, 09/04/2023Influenza Vaccine (#1)/, 04/22/2021OVID-19 Vaccine (3 - season)/10/2020, 07/29/2020TSH Level05/04/2026 05/04/2025ervical Cancer Pvzkcvmil02/18/2027Pap Smear DTaP/Tdap/Td Vaccines (8 - Td or Tdap)/12/2016, 11/24/2005, 02/07/1993, Additional history existsDiabetes Sklmxqpdi07Lipid Panel/04/2024Zoster Vaccines (1 of 2)11/12/2037HIB VaccinesCompleted 08/24/1989IPV PjaftdusAhcmvmgcp27/19/1993, 08/24/1989, 04/03/1988, Additional history existsMMR YipevbptSddbfixpu49/17/2000, 03/24/1989Meningococcal Vaccine Tmiqtazyl64/05/2006Hepatitis B TjkyyjplBpyfdjzgo24/29/2006, 01/29/2006, 11/24/2005HIV BwjkjvgsiJasqovulg47/13/2025, 05/01/2024Hepatitis C Screening Zropystea21/13/2025, 05/01/2024Hepatitis A VaccinesAged OutNo longer eligible based on patient's age to complete this topicPneumococcal Vaccine: Pediatrics and At-Risk Adult PatientsAged OutNo longer eligible based on patient's age to complete this topicRotavirus VaccinesAged OutNo longer eligible based on patient's age to complete this topic Procedures Procedure NamePriorityDate/TimeAssociated DiagnosisCommentsC. TRACHOMATIS / N. GONORRHOEAE, AMPLIFIED, XANZWTNFZMYgwkajm13/13/2025 11:12 AM EDT Screening for STDs (sexually transmitted diseases) SYPHILIS SCREENING WITH MOEVPMMzcexdt97/13/2025 11:12 AM EDT Screening for STDs (sexually transmitted diseases) HIV 1/2 ANTIGEN/ANTIBODY SCREEN WIH REFLEX TO BUTXCDWGVQCDXbpgpoh56/13/2025 11:12 AM EDT Screening for STDs (sexually transmitted diseases) HEPATITIS C XPOEVRESUimpofp20/13/2025 11:12 AM EDT Screening for STDs (sexually transmitted diseases) HEPATITIS B SURFACE LKOGAJEQaoxdmc24/13/2025 11:12 AM EDT Screening for STDs (sexually transmitted diseases) TSH WITH REFLEX TO FREE T4 IF INOBHWSOBiugwfr48/13/2025 11:12 AM EDT Hypothyroidism, unspecified type [facility] ANTI-MULLERIAN HORMONE (AMH), XVFOOAAeyyqhr79/13/2025 11:12 AM EDT Fertility testing COMPREHENSIVE METABOLIC UCCETMzvdykf48/10/2024 11:26 AM EDT Class 3 severe obesity with body mass index (BMI) of 40.0 to 44.9 in adult, unspecified obesity type, unspecified whether serious comorbidity present LIPID IBMXYJjmccco92/10/2024 11:26 AM EDT Class 3 severe obesity with body mass index (BMI) of 40.0 to 44.9 in adult, unspecified obesity type, unspecified whether serious comorbidity present from Last 3 Months or Most Recently Relevant to Health Maintenance Results * [facility] ANTI-MULLERIAN HORMONE (AMH), FEMALE (05/04/2025 11:12 AM EDT)Component ValueRef RangeTest MethodAnalysis TimePerformed AtPathologist SignatureANTI- MULLERIAN HORMONE (AMH), FEMALE2.650.18 - 5.68 ng/mLTurningArt Diagnostics/[facility],Specimen (Source)Anatomical Location / Laterality Collection Method / VolumeCollection TimeReceived TimeBloodVenous blood specimen / Aythagy0305/04/2025 11:12 AM EDT1 11:13 AM EDT Narrative Authorizing ProviderResult TypeResult StatusDawchris Mccormack [employer] BLOOD ORDERABLESFinal ResultPerforming OrganizationAddressCity/State/ZIP CodePhone Number Ecast [facility] [address] [place] [address] [facility], [address] [place] [address] * Syphilis Screen with Reflex (05/04/2025 11:12 AM EDT)ComponentValueRef Range Test MethodAnalysis TimePerformed AtPathologist SignatureT. PALLIDUM AB NEGATIVENEGATIVEThrasos [facility] GreeneComment: No antibodies to T. pallidum (the agent causing syphilis) were detected in the specimen. This result, however, does not exclude very recent T. pallidum infection; testing of a second specimen, collected 2-4 weeks after this specimen, is recommended if the index of suspicion for recent infection is high. Specimen (Source)Anatomical Location / LateralityCollection Method / Volume Collection TimeReceived TimeBloodVenous blood specimen / Hjcodrx1405/04/2025 11:12 AM EDT1 11:13 AM EDT Narrative Authorizing ProviderResult TypeResult StatusDaradha Mccormack TOLL LINE INSPECTORFlyer, Inc.BA[facility] MEDICAL CENTERMedRunner BLOOD ORDERABLESFinal ResultPerforming OrganizationAddressty/State/ZIP CodePhone Number Ecast [facility] [employer] [facility] [address] [facility], [address] [place] [address] * TSH with reflex to Free T4 if abnormal (05/04/2025 11:12 AM EDT)ComponentValue Ref RangeTest MethodAnalysis TimePerformed AtPathologist SignatureTSH W/REFLEX TO FT41.71mIU/LQuest [facility] - YorkComment: ?Reference Range ? > or = 20 Years 0.40-4.50 ? Ranges ?First trimester ?0.26-2.66 ?Second trimester ?? 0.55-2.73 ?Third trimester ?0.43-2.91 Specimen (Source)Anatomical Location / LateralityCollection Method / Volume Collection TimeReceived TimeBloodVenous blood specimen / Osgwanw4805/04/2025 11:12 AM EDT1 11:13 AM EDT Narrative Authorizing ProviderResult TypeResult StatusDawchris Mccormack TOLL LINE INSPECTOR-CNPLAB BLOOD ORDERABLESFinal ResultPerforming OrganizationAddressCity/State/ZIP CodePhone Number [address], [address] [place] [phone] * Hepatitis C Antibody (05/04/2025 11:12 AM EDT)ComponentValueRef RangeTest MethodAnalysis TimePerformed AtPathologist SignatureHEPATITIS C ANTIBODY YDQ-VDAKNBJGCGJ-PYNYCVTFClcqmKindred HealthcareComment: HCV antibody was non-reactive. There is no laboratory evidence of HCV infection. In most cases, no further action is required. However, if recent HCV exposure is suspected, a test for HCV RNA (test code 61236) is suggested. For additional information please refer to http://education.[employer]/faq/XGG77y1 (This link is being provided for informational/ educational purposes only.) Specimen (Source)Anatomical Location / LateralityCollection Method / Volume Collection TimeReceived TimeBloodVenous blood specimen / Vcyfnep5305/04/2025 11:12 AM EDT1 11:13 AM EDT Narrative Authorizing ProviderResult TypeResult StatusDawchris [place] RODGERSDANVERS STATE HOSPITALLENNY BLOOD ORDERABLESFinal ResultPerforming OrganizationAddressCity/State/ZIP CodePhone Number [facility] [address] [facility], [address] [place] [address] * C. trachomatis / N. gonorrhoeae, Amplified, Urogenital (05/04/2025 11:12 AM EDT)ComponentValueRef RangeTest MethodAnalysis TimePerformed AtPathologist SignatureCHLAMYDIA TRACHOMATIS RNA, TMA, UROGENITALNOT DETECTEDNOT DETECTED [facility] [employer] [facility] GreeneNEISSERIA GONORRHOEAE RNA, TMA, UROGENITALNOT DETECTEDNOT DETECTEDThrasos [facility] (Always Message)[facility] GreeneComment: The analytical performance characteristics of this assay, when used to test SurePath(TM) specimens have been determined by [facility]. The modifications have not been cleared or approved by the FDA. This assay has been validated pursuant to the CLIA regulations and is used for clinical purposes. For additional information, please refer to https://education.[employer]/faq/TVR520 (This link is being provided for information/ educational purposes only.) Specimen (Source)Anatomical Location / LateralityCollection Method / Volume Collection TimeReceived TimeUrineUrine specimen / Lsccwul9805/04/2025 11:12 AM EDT 05/04/2025 11:13 AM EDT Narrative Authorizing ProviderResult TypeResult StatusDaradha VALLEJO MOLECULAR DIAGNOSTICS ORDERABLESFinal ResultPerforming OrganizationAddressCity/State/ZIP CodePhone Number [facility] [address], [address] [place] [address] * HIV 1/2 Antigen/Antibody Screen with Reflex to Confirmation (05/04/2025 11:12 AM EDT)ComponentValueRef RangeTest MethodAnalysis TimePerformed AtPathologist SignatureHIV FINAL INTERPRETATIONHIV NEGATIVEShiprock-Northern Navajo Medical Centerb [employer] [facility] GreeneComformerly [facility]: HIV-1 antigen and HIV-1/HIV-2 antibodies were not detected. There is no laboratory evidence of HIV infection. HIV AG/AB, 4TH HPLMCR-GTNKTLCWLQT-KLAJFQJMVctoh Diagnostics [facility] GreeneSpecimen (Source)Anatomical Location / Laterality Collection Method / VolumeCollection TimeReceived TimeBloodVenous blood specimen / Afnfbaw4005/04/2025 11:12 AM EDT1 11:13 AM EDT Narrative Authorizing ProviderResult TypeResult StatusDaradha [place] TOLL LINE INSPECTOR-CNPLAB BLOOD ORDERABLESFinal ResultPerforming OrganizationAddressCity/State/ZIP CodePhone Number Ecast [facility] [address] [place] [address], [address] [place] [address] * Hepatitis B surface antigen (05/04/2025 11:12 AM EDT)ComponentValueRef Range Test MethodAnalysis TimePerformed AtPathologist SignatureHEPATITIS B SURFACE DHNUUMHEVC-HHVXPMVCHSO-OOKAMNQHHgory [employer] [facility] Comment: For additional information, please refer to http://education.[employer]/faq/SUC744 (This link is being provided for informational/ educational purposes only.) Specimen (Source)Anatomical Location / LateralityCollection Method / Volume Collection TimeReceived TimeBloodVenous blood specimen / Aahiodf4405/04/2025 11:12 AM EDT1 11:13 AM EDT Narrative Authorizing ProviderResult TypeResult StatusDaradha Mccormack APRN-CNPLAB BLOOD ORDERABLESFinal ResultPerforming OrganizationAddressCity/State/ZIP CodePhone Number [facility]vest[facility] [address], [address] [place] [address] * (ABNORMAL) Lipid Panel (05/01/2024 11:26 AM EDT)ComponentValueRef RangeTest MethodAnalysis TimePerformed AtPathologist CyhiujwhxTpsyfmcqvil770(H)0 - 199 mg/dL LAB CHEMISTRY METHOD 05/01/2024 12:37 PM [facility] LABComment: ?Age ?Desirable ?? Borderline High ?? High 0-19 Y 0 - 169 170 - 199 >/= 200 20-24 Y 0 - 189 190 - 224 >/= 225 >24 Y 0 - 199 200 - 239 >/= 240 All ranges are based on fasting samples. Specific therapeutic targets will vary based on patient-specific cardiac risk. Pediatric guidelines reference:Pediatrics 2011, 128(S5).Adult guidelines reference: NCEP ATPIII Guidelines,CHIP 2001, 258:2486-97 Venipuncture immediately after or during the administration of Metamizole may lead to falsely low results. Testing should be performed immediately prior to Metamizole dosing. HDL-Qimnkmurfmg26.9mg/dL LAB CHEMISTRY METHOD 05/01/2024 12:37 PM [facility] LABComment: Age ? Very Low ?? Low ? Normal ?High ?? 0-19 Y < 35 < 40 40-45 ---- 20-24 Y ---- < 40 >45 ---- >24 Y ---- < 40 40-60 >60 Cholesterol/HDL Ratio4.8 LAB CHEMISTRY METHOD 05/01/2024 12:37 PM [facility] LABComment: Ref Values Desirable < 3.4 High Risk > 5.0 LDL Aegixxujsk177(H)<=99 mg/dL LAB CHEMISTRY METHOD 05/01/2024 12:37 PM [facility] LABComment: ?Near ?? Borderline ?AGE ?Desirable ??Optimal ?High ? High ? Very High 0-19 Y 0 - 109 --- 110-129 >/= 130 ---- 20-24 Y 0 - 119 --- 120-159 >/= 160 ---- >24 Y 0 - 99 100-129 130-159 160-189 >/=190 KAZW243 - 40 mg/dL LAB CHEMISTRY METHOD 05/01/2024 12:37 PM [facility] TZRInoyuvttsizzd0168 - 149 mg/dL LAB CHEMISTRY METHOD 05/01/2024 12:37 PM [facility] LABComment: Age ? Desirable ?? Borderline High ?? High ? Very High 0 D-90 D ?19 - 174 ? ---- ? ---- ?---- 91 D- 9 Y 0 - 74 75 - 99 >/= 100 ---- 10-19 Y 0 - 89 90 - 129 >/= 130 ---- 20-24 Y 0 - 114 115 - 149 >/= 150 ---- >24 Y 0 - 149 150 - 199 200- 499 >/= 500 Venipuncture immediately after or during the administration of Metamizole may lead to falsely low results. Testing should be performed immediately prior to Metamizole dosing. Non HDL Pumkofxipeb230(H)0 - 149 mg/dL LAB CHEMISTRY METHOD 05/01/2024 12:37 PM [facility] LABComment: ?Age ? Desirable ?? Borderline High ?? High ? Very High 0-19 Y 0 - 119 120 - 144 >/= 145 >/= 160 20-24 Y 0 - 149 150 - 189 >/= 190 ---- >24 Y 30 mg/dL above LDL Cholesterol goal Specimen (Source)Anatomical Location / LateralityCollection Method / Volume Collection TimeReceived TimeBloodVenous blood specimen / UnknownVenipuncture / Phatyia2505/01/2024 11:26 AM EDT1 11:26 AM EDT Narrative Authorizing ProviderResult TypeResult StatusRachel Aidan Theodore MDHERINGTON M[facility] BLOOD ORDERABLESFinal ResultPerforming OrganizationAddressCity/State/[facility] CodePhone Number [facility] [address] [place] [address] * Comprehensive Metabolic Panel (05/01/2024 11:26 AM EDT)ComponentValueRef Range Test MethodAnalysis TimePerformed AtPathologist QqbrbimbiXbffkdr7244 - 99 mg/dL LAB CHEMISTRY METHOD 05/01/2024 12:37 PM [facility] UBQCtulny820644 - 145 mmol/L LAB CHEMISTRY METHOD 05/01/2024 12:37 PM [facility] LABPotassium4.13.5 - 5.3 mmol/L LAB CHEMISTRY METHOD 05/01/2024 12:37 PM [facility] AVUVsdmywte85393 - 107 mmol/L LAB CHEMISTRY METHOD 05/01/2024 12:37 PM [facility] WUPWarnwcwshhy1735 - 32 mmol/L LAB CHEMISTRY METHOD 05/01/2024 12:37 PM [facility] LABAnion Dua2017 - 20 mmol/L LAB CHEMISTRY METHOD 05/01/2024 12:37 PM [facility] LABUrea Lcvqlmup25 - 23 mg/dL LAB CHEMISTRY METHOD 05/01/2024 12:37 PM [facility] LABCreatinine0.690.50 - 1.05 mg/dL LAB CHEMISTRY METHOD 05/01/2024 12:37 PM [facility] LABeGFR>90>60 mL/min/1.73m*2 LAB CHEMISTRY METHOD 05/01/2024 12:37 PM [facility] LABComment: Calculations of estimated GFR are performed using the 2020 CKD-EPI Study Refit equation without therace variable for the IDMS-Traceable creatinine methods. https://jasn.asnjournals.org/content/early//ASN.0852527031 Calcium9.48.6 - 10.3 mg/dL LAB CHEMISTRY METHOD 05/01/2024 12:37 PM [facility] LABAlbumin4.63.4 - 5.0 g/dL LAB CHEMISTRY METHOD 05/01/2024 12:37 PM [facility] LABAlkaline Ehwafptbgoy4955 - 110 U/L LAB CHEMISTRY METHOD 05/01/2024 12:37 PM [facility] LABTotal Protein7.06.4 - 8.2 g/dL LAB CHEMISTRY METHOD 05/01/2024 12:37 PM [facility] WXLAPA180 - 39 U/L LAB CHEMISTRY METHOD 05/01/2024 12:37 PM [facility] LABBilirubin, Total0.70.0 - 1.2 mg/dL LAB CHEMISTRY METHOD 05/01/2024 12:37 PM [facility] UMBXSQ018 - 45 U/L LAB CHEMISTRY METHOD 05/01/2024 12:37 PM [facility] LABComment:Patients treated with Sulfasalazine may generate falsely decreased results for ALT.Specimen (Source) Anatomical Location / LateralityCollection Method / VolumeCollection Time Received TimeBloodVenous blood specimen / UnknownVenipuncture / Unknown 05/01/2024 11:26 AM EDT1 11:26 AM EDT Narrative Authorizing ProviderResult TypeResult StatusRachedylan WARD BLOOD ORDERABLESFinal ResultPerforming OrganizationAddressCity/State/ZIP CodePhone Number [facility] [address] [place] [address] from Last 3 Months or Most Recently Relevant to Health Maintenance Insurance * Guarantor: Lucia Narvaez TypeRelation to PatientDate of BirthPhoneBilling LczguxsEFRUixd24/23[birth year][address] [place] [address] [address] [place] [address] Advance Directives For more information, please contact: [phone] (Available ) * Full Code (Latest Code Status on File) Date ActivatedDate InactivatedComments07/30/2024 10:07 AMQuestionAnswerComments Plan of Care:* Code Status Discussion Completed Decision Maker:* Patient Care Teams Team MemberRelationshipSpecialtyStart DateEnd Date Ramonita Powers MD [address] [place] [address] PCP - GeneralFamily Medicine01/28/24 Edith Suarez LPN Licensed Practical NurseReproductive Endocrinology and Iirzutungpl35/2/24
--- OUTSIDE RECORDS SUMMARY | 2025-07-06 20:40 | XMS_ITS | Patient Health Record ---
Author Organization [facility] Address [address] [place] [address] Reason For Referral No Information Problems Problem Type SNOMED Code ICD Code Onset Dates Problem Status W/U Status Risk Notes Problem Attention deficit hy peractivity disorder, predominantly inattentive type (99451948) ADHD (attention deficit hyperactivity disorder), inattentive type (F90.0) Activeconfirmed Plan Of Treatment No Information Insurance Providers Payer Name Payer Address Payer Phone Subscriber Number Group Number Insured Name Patient Relationship to Insured Coverage Start Date Coverage End Date ANTHEM Primary [address] [place] [phone] [id number] NANY SEWELL Self - patient is the insured 4
--- OUTSIDE RECORDS SUMMARY | 2025-07-06 20:41 | XMS_ITS | Encounter Summary ---
Author Organization [facility] Address [address] [facility] [place] [address] Care Team Providers Care Store Administrative Assistant Name Role Phone Ramonita Powers MD Primary Care Provider [phone] Encounter Details DateTypeDepartmentCare Team (Latest Contact Info)Flrqgvpkubl14/15/2025Bamboo flowsheet [facility] [address] [place] [phone] Hong Salgado DO [address] [facility] [address] [place], [facility] Social History Tobacco UseTypesPacks/DayYears UsedDateSmoking Tobacco: NeverSmokeless Tobacco: NeverAlcohol UseStandard Drinks/WeekCommentsYes1 (1 standard drink = 0.6 oz pure alcohol)Caffeine intake: 1-2 cups per day soda/pop, chocolate, suwpN5714 Health LiteracyAnswerDate RecordedHow often do you need to have someone help you when you read instructions, pamphlets, or other written material from your doctor or pharmacy?Never10/07/2024Humiliation, Afraid, Rape, and Kick questionnaireAnswer Date RecordedWithin the last year, have you been afraid of your partner or ex-partner?No08/28/2023Within the last year, have you been humiliated or emotionally abused in other ways by your partner or ex-partner?No02/12/2023 Within the last year, have you been [...] relatives?Once a week10/07/2024How often do you attend jainism or buddhist services?More than 4 times per year10/07/2024Do you belong to any clubs or organizations such as jainism groups, unions, fraShot & Shop or athletic groups, or school groups?No10/07/2024How often [...] medical care, and heating?Not hard at all 10/07/2024[place] [facility] [place] of Occupational [facility] - Occupational Stress QuestionnaireAnswerDate RecordedDo you feel stress - tense, restless, nervous, or anxious, or unable to sleep at night because yourmind is troubled all the time - these days?Only a nledfa0210/07/2024Exercise Vital SignAnswerDate Recorded On average, how many [...] steady place to sleep or slept in [facility] (including now)?No08/28/2023Housing Stability Vital SignAnswerDate RecordedIn the last 12 months, was there a time when you were not able to pay the mortgage or rent on time?No10/07/2024In the past 12 months, how many times have you moved where you were living? At any time in the past 12 months, were you homeless or living in a intermediate (including now)?No10/07/2024CommentsNoSex and Gender InformationValue Date RecordedSex Assigned at RplcdQrowua93/02/2023 8:38 AM EDTLegal SexFemale 11/20/2022 8:33 PM EDTGender LeoyzwueAuknaj26/02/2023 8:38 AM EDTSexual YtnykiarurzLuurphvf98/02/2023 8:38 AM EDTdocumented as of this encounter Plan of Treatment DateTypeDepartmentCare Team (Latest Contact Info)Rhgjorvobvb00/31/2026 4:00 PM EDTOffice Visit [facility] [place] [facility] [address] [place] [address] Diane Chaves MD [address] [place] [address] 07/12/2026 3:00 PM ESTProcedure Visit [facility] [address] [place] [address] Hong Salgado DO [address] [facility] [address] [place] [address] documented as of this encounter Visit Diagnoses Not on filedocumented in this encounter Care Teams Team MemberRelationshipSpecialtyStart DateEnd Date Ramonita Powers MD [address] [place] [address] PCP - GeneralFamily Medicine11/28/22documented as of this encounter
--- OUTSIDE RECORDS SUMMARY | 2025-07-06 20:41 | XMS_ITS | Clinical Summary ---
Author Organization [facility] Address [address] [place] [address] Care Team Providers Care Mail Sorting Supervisor Name Role Phone Ramonita Powers MD Primary Care Provider [phone] Allergies No known active allergies Medications MedicationSigDispense QuantityRefillsLast FilledStart DateEnd DateStatus MV-Min-Fe Fum-FA-DHA ( 1 PO) Take by mouthActive chorionic gonadotropin (Pregnyl) 14708 units injection Inject 10,000 Units under the skin 1 (one) time if umatku575Active omega-3 (Fish Oil) 1000 MG capsule Take 1,000 mg by mouth Daily4Active progesterone 100 MG capsule Insert 100 mg into the vagina in the morning and 100 mg in the evening. 506Active Tirzepatide-Weight Management (Zepbound) 10 MG/0.5ML solution Indications:BMI 37.0-37.9, adult,Morbid obesity (CMS-HCC)Inject 10 mg under the skin 1 (one) time per week 2 mL 1105Active levothyroxine (Synthroid, Levoxyl) 25 MCG tablet Indications:Thyroid diseaseTake 1 tablet (25 mcg) by mouth in the morning. Take before meals. 90 tablet 5Active ondansetron (Zofran) 4 MG tablet Take 4 mg by mouth every 8 (eight) hours if herdqi365Active triamcinolone (Kenalog) 0.1 % ointment Indications:Allergic contact dermatitis due to plants, except foodApply topically 2 (two) times a day as needed for irritation or rash 60 g 5Active Active Problems ProblemNoted DateDiagnosed DateMorbid qgzufwl1905/09/2022 Encounters DateTypeDepartmentCare LnfgQgbvhkugfmp14/15/2025 1:00 PM ESTOffice Visit [facility] [place] [facility] [address] [place] [address] Hong Salgado, Well woman exam with routine gynecological exam07/06/2025amb flowsheet [facility] [place] [facility] [address] [place] [address] Hong Salgado, 06/29/20254926Zgimjq70/16/2025 3:20 PM EDTOffice Visit [facility] [place] [facility] [address] [place] [address] Nyasia Berg NP Allergic contact dermatitis due to plants, except food (Primary Dx); BMI 32.0-32.9,adult; Obesity (BMI 30.0-34.9)04/07/2025amb flowsheet [facility] [address] [place] [phone] Nyasia Berg NP 04/07/20259313Juadiw52/15/2025Travelfrom Last 3 Months Immunizations ImmunizationAdministration DatesNext BaxDTL7308/24/1989,12/26/1988,04/03/1988, 01/19/1988DTaP, Fqybxtyvmgf81/19/1993Hep B, Adolescent or Xvemrlmjk06/10/2006, 11/24/2005Hep B, adult07/20/2006HiB, oqnketzdkzp53/02/1990Influenza, injectable, quadrivalent, preservative free05/09/2021,04/22/2021MMR09/08/1999,03/24/1989 Meningococcal QMT0N4611/24/2005OPV02/07/1993,08/24/1989,04/03/1988,01/19/1988Tdap 01/25/2017,11/24/2005 Family History Medical HistoryRelationNameCommentsHypertensionFatherDiabetesMaternal GrandfatherDonald StoldtDiabetesMaternal GrandmotherMarjorie StoldtArthritis MotherDebra MohrHyperlipidemiaMotherDebra MohrHypertensionMotherDebra Max Miscarriages / StillbirthsMotherDebra MohrOsteoarthritisMotherDebra MohrThyroid diseaseMotherDebra MohrDiabetesOtherCOPDPaternal GrandfatherMilo HartHeart diseasePaternal GrandfatherMilo HartHeart diseasePaternal GrandmotherGeorgia HartHypertensionPaternal GrandmotherGeorgia HartRelationNameStatusCommentsFather AliveMaternal GrandfatherDonald StoldtMaternal GrandmotherMarjorie StoldtMother Scarlet MohrAliveOtherFamily hxPaternal GrandfatherMilo HartPaternal Grandmother Kasey HartSisterx1 Social History Tobacco UseTypesPacks/DayYears UsedDateSmoking Tobacco: NeverSmokeless Tobacco: Never Tobacco Cessation:Counseling Given: Not Answered Alcohol UseStandard Drinks/WeekCommentsYes1 (1 standard drink = 0.6 oz pure alcohol)Caffeine intake: 1-2 cups per day soda/pop, chocolate, [id number] Health LiteracyAnswerDate RecordedHow often do you need [...] relatives?Once a week10/07/2024How often do you attend faith or religion services?More than 4 times per year10/07/2024Do you belong to any clubs or organizations such as faith groups, unions, fraternal or athletic groups, or [...] medical care, and heating?Not hard at all 10/07/2024[facility] [place] [facility] - Occupational Stress QuestionnaireAnswerDate RecordedDo you feel stress - tense, restless, nervous, or anxious, or unable to sleep at night because yourmind is troubled all the time - these days?Only a ejabuf6110/07/2024Exercise Vital SignAnswerDate Recorded On average, how many [...] or from getting things needed for daily living?10/07/2024Housing Stability Vital SignAnswerDate RecordedIn the last 12 months, was there a time when you were not able to pay the mortgage or rent on time?No08/28/2023In the last 12 months, how many places have you lived?2 08/28/2023In the last 12 months, was there a time when you did not have a steady place to sleep or slept in [place] (including now)?No08/28/2023Housing Stability Vital SignAnswerDate RecordedIn the last 12 months, was there a time when you were not able to pay the mortgage or rent on time?No10/07/2024In the past 12 months, how many times have you moved where you were living? At any time in the past 12 months, were you homeless or living in a half-way (including now)?10/07/2024CommentsNoSex and Gender InformationValue Date RecordedSex Assigned at PeuimYwyiyf17/02/2023 8:38 AM EDTLegal SexFemale 11/20/2022 8:33 PM EDTGender MvmujnegVdkzbi28/02/2023 8:38 AM EDTSexual FcgkgsescczOctcqxcc90/02/2023 8:38 AM EDT Last Filed Vital Signs Vital SignReadingTime TakenCommentsBlood Lxrcsxhh363/7212 1:11 PM EST Cxpgi9954 3:20 PM QITSfngfreyhmz34.9 ??C (98.4 ??F)04/07/2025 3:20 PM EDTRespiratory Rate--Oxygen Bmdmneznap22%04/07/2025 3:20 PM EDTInhaled Oxygen Concentration--Drtnkb09.8 kg (220 lb)07/06/2025 1:11 PM BCUDzhyub152.7 cm (5' 8 )04/07/2025 3:20 PM EDTBody Mass Index33.4509 3:20 PM EDT Plan of Treatment DateTypeDepartmentCare Team (Latest Contact Info)Cvlqrusfeiy66/31/2026 4:00 PM EDTOffice Visit [facility] [address] [place] [phone] Diane Chaves MD [address] [place] [address] 07/12/2026 3:00 PM ESTProcedure Visit [facility] [address] [place] [address] Hong Salgado DO [address] [place] [address] Health MaintenanceDue DateLast DoneCommentsHPV/Dldptt1811/12/2017COVID-19 Vaccine ( season)502/10/2020, 07/29/2020Influenza Vaccine (#1) /, 04/22/2021ervical Cancer Qrvwpfbpj06/18/2027Pap Smear 4Pneumococcal Vaccine: Pediatrics (0 to 5 Years) and At-Risk Patients (6 to 64 Years)Aged OutNo longer eligible based on patient's age to complete this topic Procedures Procedure NamePriorityDate/TimeAssociated DiagnosisCommentsPAP SMEARRoutine 01/08/2024 12:00 AM EDTfrom Last 3 Months or Most Recently Relevant to Health Maintenance Results * Pap Smear (01/08/2024 12:00 AM EDT)Specimen (Source)Anatomical Location / LateralityCollection Method / VolumeCollection TimeReceived TimeSwabCervical swab / Unknown Narrative Authorizing ProviderResult TypeResult StatusFazio Nurse [facility] CYTOLOGY ORDERABLESFinal ResultPerforming OrganizationAddressCity/State/ZIP CodePhone Number EXTERNAL LAB from Last 3 Months or Most Recently Relevant to Health Maintenance Insurance Care Teams Team MemberRelationshipSpecialtyStart DateEnd Ramonita Powers MD [address] [place] [address] PCP - GeneralFamily Medicine11/28/22
--- OUTSIDE RECORDS SUMMARY | 2025-07-06 20:41 | XMS_ITS | Encounter Summary ---
Author Organization [facility] Address [address] [place] [address] Care Team Providers Care Remote Sensing Specialist Name Role Phone Ramonita Powers MD Primary Care Provider [phone] Encounter Details DateTypeDepartmentCare Team (Latest Contact Info)Gcmlyzpiuel48/08/2025Travel Social History Tobacco UseTypesPacks/DayYears UsedDateSmoking Tobacco: NeverSmokeless Tobacco: NeverAlcohol UseStandard Drinks/WeekCommentsYes1 (1 standard drink = 0.6 oz pure alcohol)Caffeine intake: 1-2 cups per day soda/pop, chocolate, [id number] Health LiteracyAnswerDate RecordedHow often do you need [...] relatives?Once a week10/07/2024How often do you attend protestant or gnosticism services?More than 4 times per year10/07/2024Do you belong to any clubs or organizations such as protestant groups, unions, fraternal or athletic groups, or [...] medical care, and heating?Not hard at all 10/07/2024[facility] [place] of Occupational Health - Occupational Stress QuestionnaireAnswerDate RecordedDo you feel stress - tense, restless, nervous, or anxious, or unable to sleep at night because yourmind is troubled all the time - these days?Only a xrqpbe5510/07/2024Exercise Vital SignAnswerDate Recorded On average, how many [...] steady place to sleep or slept in [place]hel[place] (including now)?No08/28/2023Housing Stability Vital SignAnswerDate RecordedIn the last 12 months, was there a time when you were not able to pay the mortgage or rent on time?No10/07/2024In the past 12 months, how many times have you moved where you were living? At any time in the past 12 months, were you homeless or living in a fci (including now)?No10/07/2024CommentsNoSex and Gender InformationValue Date RecordedSex Assigned at XnmqaOlvigk06/02/2023 8:38 AM EDTLegal SexFemale 11/20/2022 8:33 PM EDTGender UjxvghjtKavuwy40/02/2023 8:38 AM EDTSexual EdpedmkdlptPcpevzha06/02/2023 8:38 AM EDTdocumented as of this encounter Plan of Treatment DateTypeDepartmentCare Team (Latest Contact Info)Kwxbxvhfwbf30/31/2026 4:00 PM EDTOffice Visit [facility] [place] [facility] [address] [place] [address] Diane Chaves MD [address] [place] [address] 07/12/2026 3:00 PM ESTProcedure Visit [facility] [address] [place] [address] Hong Salgado, [address] [place] [address] [place] [address] documented as of this encounter Visit Diagnoses Not on filedocumented in this encounter Care Teams Team MemberRelationshipSpecialtyStart DateEnd Date Ramonita Powers MD [address] [place] [address] PCP - GeneralFamily Medicine11/28/22documented as of this encounter
== END 2025-07-06 20:38 | disposition home or self-care (01) ==
LOC: LAB 20:37
PROVIDERS: Family Provider Family Medicine; Visit Provider Obstetrics & Gynecology
DX: Z01.419 Encounter for gynecological examination (general) (routine) without abnormal findings (principal)
CPT/HCPCS: 88175